=== PATIENT | male | born 1965 | race Caucasian/White ===

== ENCOUNTER 2018-11-28 08:34 | Inpatient (IN) | payer OTHER ==
[~2018-11-28] VITALS: Ht 180.3 cm; Wt 236.8 kg
[~2018-11-28 08:34] MED LIST: ATOR40TA59 PO; BUSP15TA PO; CLIN300C8 PO; FENO160T PO; FURO80TA72 PO; HYDR-3164 PO; INSU100I18 SQ; LEVO100T5 PO; LISI10TA2 PO; LURA80TA PO; METF500T25 PO; METO-239 PO; OMEG1CAP2 PO; OMEP20CA10 PO; OXCA600T9 PO; POTA10TA12 PO; PRAZ1CAP2 PO; RANI150T2 PO; TRAZ-86 PO; ZOLP10TA4 PO
[2018-11-28 09:54] LABS: BASO # 0.1 x10^3/uL (0.0-0.2); BASO % 1 % (0-3); EOS # 0.8 x10^3/uL (0.0-0.7); EOS % 12 % (0-3); HEMATOCRIT 36.7 % (39.0-53.0); LYMPH # 1.3 x10^3/uL (1.0-4.8); LYMPH % 20 % (24-48); MEAN CORPUSCULAR HEMOGLOBIN 29 pg (25-35); MEAN CORPUSCULAR HGB CONC 33 g/dL (31-37); MEAN CORPUSCULAR VOLUME 90 fL (79-100); MONO # 0.6 x10^3/uL (0.0-1.1); MONO % 9 % (0-9); NEUT % 59 % (31-73); PLATELET COUNT 242 x10^3/uL (140-400); RED BLOOD COUNT 4.09 x10^6/uL (4.30-5.70); RED CELL DISTRIBUTION WIDTH 19.5 % (11.5-14.5); WHITE BLOOD COUNT 6.8 x10^3/uL (4.0-11.0)
[2018-11-28 10:03] LABS: PROTHROMBIN TIME PATIENT 12.9 SEC (11.7-14.0)
[2018-11-28 10:13] LABS: CALCIUM 8.2 mg/dL (8.5-10.1); CREATININE 0.9 mg/dL (0.7-1.3); POTASSIUM 4.1 mmol/L (3.5-5.1)
[2018-11-28 10:18] LABS: ALBUMIN 2.8 g/dL (3.4-5.0); ALBUMIN/GLOBULIN RATIO 0.7 (1.0-1.7); C-REACTIVE PROTEIN 33.8 mg/L (0-3.3); TOTAL BILIRUBIN 0.2 mg/dL (0.2-1.0); TOTAL PROTEIN 6.7 g/dL (6.4-8.2)
[2018-11-28 10:29] LABS: BILIRUBIN,URINE NEGATIVE (NEG); CLARITY,URINE CLEAR; COLOR,URINE YELLOW; NITRITE,URINE NEGATIVE (NEG); PH,URINE 5.5; PROTEIN,URINE NEGATIVE (NEG-TRACE); UROBILINOGEN,URINE 0.2 mg/dL (0.2 mg/dL)
[2018-11-28 10:33] LABS: SQUAMOUS EPITHELIAL CELL,UR MOD /LPF
[2018-11-28 10:35] LABS: BACTERIA,URINE FEW /HPF (0-FEW); RBC,URINE OCC /HPF (0-2)
[2018-11-28] MEDS ORDERED: ACETAMINOPHEN 325 MG TABLET. PO PRN (10:45)
[2018-11-28] MEDS ORDERED: VANCOMYCIN 2 GM in IV NORMAL SALINE 500ML BAG 500 ML IV ONE (11:00)
--- NOTE | 2018-11-28 11:20 | PDOC1 ---
History and Physical Date of Admission Date of Admission DATE: 11/28/18 TIME: 11:18 Identification/Chief Complaint Chief Complaint SEEN IN ER WITH WORSENING CELLULITIS PANNUS, RECURRENT, now tender, erythematous Past Medical History Past Medical History Past Medical History Past Medical History: Asthma, COPD, Diabetes-Type I, Hypertension, Hypothyroid , Other Additional Past Medical Histor: Cardiomyopathy, psychiatric issues Past Surgical History: Other Additional Past Surgical Histo: HERNIA REPAIR Alcohol Use: None Drug Use: None family hx obesity, HTN PAST MEDICAL HISTORY: ventral hernia repair in November 2013. He is known to have diabetes mellitus, morbid obesity, chronic cardiomyopathy, hypertension, COPD, asthma, bipolar disorder, and gastroesophageal reflux disease. PAST SURGICAL HISTORY: Ventral hernia repair cardiac cath in June 2013, possible glaucoma and cataracts. He had ear tubes placed when he was young in October 2013 and it could have been earlier. The patient had the cardiac catheterization done by Dr. Guzman and that was negative. ALLERGIES: None known any. MEDICATIONS: I have reviewed the medications. SOCIAL HISTORY: The patient has been a heavy smoker in the past and has smoked over 30 pack years. He has also used cocaine in the past, but there is no history of alcoholism. FAMILY HISTORY: There is a history of cerebrovascular disease in the family. There is also history of diabetes and hypertension in the family. Cardiovascular: HTN, Hyperlipidemia GI: GERD Endocrine: Diabetes Family History Family History: Diabetes Social History Smoke: No ALCOHOL: none Drugs: None Current Medications Current Medications Current Medications Acetaminophen (Tylenol) 650 mg PRN Q4HRS PRN PO FEVER Last administered on 11/28at 10:46; Start 11/28/18 at 10:45; Stop 11/29/18 at 10:44 Vancomycin HCl 2 gm/Sodium Chloride 500 ml @ 250 mls/hr 1X ONCE IV ; Start 09/05 at 11:00; Stop 11/28/18 at 12:59 Active Scripts Active Clindamycin Hcl 300 Mg Capsule 1 Cap PO TID Admire 5-325 Tablet (Acetaminophen/Hydrocodone Bitart) 1 Each Tablet 1 Tab PO PRN Q6HRS PRN Reported Levemir Flexpen (Insulin Detemir) 100 Unit/1 Ml Insuln.pen 10 Unit SQ HS Fenofibrate 160 Mg Tablet 160 Mg PO DAILY Atorvastatin Calcium 40 Mg Tablet 40 Mg PO HS Omeprazole 20 Mg Capsule.dr 20 Mg PO HS Prazosin Hcl 1 Mg Capsule 1 Mg PO HS Trazodone Hcl 100 Mg Tablet 100 Mg PO HS Zolpidem Tartrate 10 Mg Tablet 10 Mg PO HS Oxcarbazepine 600 Mg Tablet 1,200 Mg PO DAILY Latuda (Lurasidone Hcl) 80 Mg Tablet 160 Mg PO DAILY Buspirone Hcl 15 Mg Tablet 15 Mg PO TID Potassium Chloride 10 Meq Capsule.er 10 Meq PO TID Ranitidine Hcl 150 Mg Tablet 150 Mg PO BID Metformin Hcl Er (Metformin Hcl) 500 Mg Tab.er.24 500 Mg PO BID Lovaza ([place]-3 Acid Ethyl Esters) 1 Gm Capsule 2 Gm PO BID Lisinopril 10 Mg Tablet 10 Mg PO DAILY Levothyroxine Sodium 100 Mcg Tablet 100 Mcg PO DAILY Lasix (Furosemide) 80 Mg Tablet 80 Mg PO DAILY Metoprolol Succinate ( Xl ) (Metoprolol Succinate) 25 Mg Tab.er.24h 25 Mg PO DAILY Allergies Allergies: Coded Allergies: sulfamethoxazole (Verified Allergy, Intermediate, RASH, 06/30/16) trimethoprim (Verified Allergy, Intermediate, RASH, 06/30/16) ROS Review of System 14 pt ros otherwise neg General: YES: Fatigue PSYCHOLOGICAL ROS: YES: Anxiety, Mood Swings Eyes: No Blurry vision, No Decreased vision, No Double vision, No Dry eyes, No Excessive tearing, No Eye Pain, No Itchy Eyes, No Loss of vision, No Photophobia , No Scotomata, No Uses contacts, No Uses glasses, No Other ALLERGY AND IMMUNOLOGY: No: Hives, Insect Bite Sensitivity, Itchy/Watery Eyes, Nasal Congestion, Post Nasal Drip, Seasonal Allergies, Other ENDOCRINE: No: Breast Changes, Galactorrhea, Hair Pattern Changes, Hot Flashes , Malaise/lethargy, Mood Swings, Palpitations, Polydipsia/polyuria, Skin Changes , Temperature Intolerance, Unexpected Weight Changes, Other Respiratory: No: Cough, Hemoptysis, Orthopnea, Pleuritic Pain, Shortness of breath, SOB with excertion, Sputum Changes, Stridor, Tachypnea, Wheezing, Other Cardiovascular: No Chest Pain, No Palpitations, No Orthopnea, No Paroxysmal Noc. Dyspnea, No Edema, No Lt Headedness, No Other Genitourinary: YES Retention Musculoskeletal: Yes Gait Disturbance Neurological: Yes Gait Disturbance; No Behavorial Changes, No Bowel/Bladder ControlChng, No Confusion, No Dizziness, No Headaches, No Impaired Coord/balance, No Memory Loss, No Numbness/ Tingling, No Seizures, No Speech Problems, No Tremors, No Visual Changes, No Weakness, No Other Skin: Yes Rash Physical Exam General: Alert, Oriented X3, Cooperative, mild distress HEENT: Atraumatic, PERRLA Lungs: Clear to auscultation Heart: RRR, no gallops Breasts: Not examined Abdomen: Other (very obese with erythema of large pannus, tender lower aspect) PELVIC: Examination not indicated Extremities: No cyanosis Neuro: Normal speech, Cranial nerves 3-12 NL Psych/Mental Status: Mental status NL, Mood NL Vitals Vitals Vital Signs Date Time Temp Pulse Resp B/P (MAP) Pulse Ox O2 Delivery O2 Flow Rate FiO2 11/28/18 09:15 97.7 96 20 109/60 (76) 96 Room Air 97.7 Labs Labs Laboratory Tests Test 11/28/18 09:48 11/28/18 10:15 White Blood Count 6.8 x10^3/uL (4.0-11.0) Red Blood Count 4.09 x10^6/uL (4.30-5.70) Hemoglobin 12.0 g/dL (13.0-17.5) Hematocrit 36.7 % (39.0-53.0) Mean Corpuscular Volume 90 fL (79-100) Mean Corpuscular Hemoglobin 29 pg (25-35) Mean Corpuscular Hemoglobin Concent 33 g/dL (31-37) Red Cell Distribution Width 19.5 % (11.5-14.5) Platelet Count 242 x10^3/uL (140-400) Neutrophils (%) (Auto) 59 % (31-73) Lymphocytes (%) (Auto) 20 % (24-48) Monocytes (%) (Auto) 9 % (0-9) Eosinophils (%) (Auto) 12 % (0-3) Basophils (%) (Auto) 1 % (0-3) Neutrophils # (Auto) 4.0 x10^3uL (1.8-7.7) Lymphocytes # (Auto) 1.3 x10^3/uL (1.0-4.8) Monocytes # (Auto) 0.6 x10^3/uL (0.0-1.1) Eosinophils # (Auto) 0.8 x10^3/uL (0.0-0.7) Basophils # (Auto) 0.1 x10^3/uL (0.0-0.2) Prothrombin Time 12.9 SEC (11.7-14.0) Prothromb Time International Ratio 1.0 (0.8-1.1) Sodium Level 138 mmol/L (136-145) Potassium Level 4.1 mmol/L (3.5-5.1) Chloride Level 101 mmol/L (98-107) Carbon Dioxide Level 26 mmol/L (21-32) Anion Gap 11 (6-14) Blood Urea Nitrogen 9 mg/dL (8-26) Creatinine 0.9 mg/dL (0.7-1.3) Estimated GFR (Cockcroft-Gault) 89.0 BUN/Creatinine Ratio 10 (6-20) Glucose Level 234 mg/dL (70-99) Calcium Level 8.2 mg/dL (8.5-10.1) Total Bilirubin 0.2 mg/dL (0.2-1.0) Aspartate Amino Transf (AST/SGOT) 21 U/L (15-37) Alanine Aminotransferase (ALT/SGPT) 31 U/L (16-63) Alkaline Phosphatase 135 U/L (46-116) C-Reactive Protein, Quantitative 33.8 mg/L (0-3.3) Total Protein 6.7 g/dL (6.4-8.2) Albumin 2.8 g/dL (3.4-5.0) Albumin/Globulin Ratio 0.7 (1.0-1.7) Urine Collection Type Unknown Urine Color Yellow Urine Clarity Clear Urine pH 5.5 Urine Specific [place] >=1.030 Urine Protein Negative mg/dL (NEG-TRACE) Urine Glucose (UA) >=1000 mg/dL (NEG) Urine Ketones (Stick) Negative mg/dL (NEG) Urine Blood Negative (NEG) Urine Nitrite Negative (NEG) Urine Bilirubin Negative (NEG) Urine Urobilinogen Dipstick 0.2 mg/dL (0.2 mg/dL) Urine Leukocyte Esterase Negative (NEG) Urine RBC Occ /HPF (0-2) Urine WBC 5-10 /HPF (0-4) Urine Squamous Epithelial Cells Mod /LPF Urine Bacteria Few /HPF (0-FEW) Urine Mucus Slight /LPF Laboratory Tests Test 11/28/18 09:48 11/28/18 10:15 White Blood Count 6.8 x10^3/uL (4.0-11.0) Red Blood Count 4.09 x10^6/uL (4.30-5.70) Hemoglobin 12.0 g/dL (13.0-17.5) Hematocrit 36.7 % (39.0-53.0) Mean Corpuscular Volume 90 fL (79-100) Mean Corpuscular Hemoglobin 29 pg (25-35) Mean Corpuscular Hemoglobin Concent 33 g/dL (31-37) Red Cell Distribution Width 19.5 % (11.5-14.5) Platelet Count 242 x10^3/uL (140-400) Neutrophils (%) (Auto) 59 % (31-73) Lymphocytes (%) (Auto) 20 % (24-48) Monocytes (%) (Auto) 9 % (0-9) Eosinophils (%) (Auto) 12 % (0-3) Basophils (%) (Auto) 1 % (0-3) Neutrophils # (Auto) 4.0 x10^3uL (1.8-7.7) Lymphocytes # (Auto) 1.3 x10^3/uL (1.0-4.8) Monocytes # (Auto) 0.6 x10^3/uL (0.0-1.1) Eosinophils # (Auto) 0.8 x10^3/uL (0.0-0.7) Basophils # (Auto) 0.1 x10^3/uL (0.0-0.2) Prothrombin Time 12.9 SEC (11.7-14.0) Prothromb Time International Ratio 1.0 (0.8-1.1) Sodium Level 138 mmol/L (136-145) Potassium Level 4.1 mmol/L (3.5-5.1) Chloride Level 101 mmol/L (98-107) Carbon Dioxide Level 26 mmol/L (21-32) Anion Gap 11 (6-14) Blood Urea Nitrogen 9 mg/dL (8-26) Creatinine 0.9 mg/dL (0.7-1.3) Estimated GFR (Cockcroft-Gault) 89.0 BUN/Creatinine Ratio 10 (6-20) Glucose Level 234 mg/dL (70-99) Calcium Level 8.2 mg/dL (8.5-10.1) Total Bilirubin 0.2 mg/dL (0.2-1.0) Aspartate Amino Transf (AST/SGOT) 21 U/L (15-37) Alanine Aminotransferase (ALT/SGPT) 31 U/L (16-63) Alkaline Phosphatase 135 U/L (46-116) C-Reactive Protein, Quantitative 33.8 mg/L (0-3.3) Total Protein 6.7 g/dL (6.4-8.2) Albumin 2.8 g/dL (3.4-5.0) Albumin/Globulin Ratio 0.7 (1.0-1.7) Urine Collection Type Unknown Urine Color Yellow Urine Clarity Clear Urine pH 5.5 Urine Specific [place] >=1.030 Urine Protein Negative mg/dL (NEG-TRACE) Urine Glucose (UA) >=1000 mg/dL (NEG) Urine Ketones (Stick) Negative mg/dL (NEG) Urine Blood Negative (NEG) Urine Nitrite Negative (NEG) Urine Bilirubin Negative (NEG) Urine Urobilinogen Dipstick 0.2 mg/dL (0.2 mg/dL) Urine Leukocyte Esterase Negative (NEG) Urine RBC Occ /HPF (0-2) Urine WBC 5-10 /HPF (0-4) Urine Squamous Epithelial Cells Mod /LPF Urine Bacteria Few /HPF (0-FEW) Urine Mucus Slight /LPF VTE Prophylaxis Ordered VTE Prophylaxis Devices: Yes VTE Pharmacological Prophylaxi: Yes Assessment/Plan Assessment/Plan impression 1. acute complicated cellulitis of abdominal wall pannus 2. diabetes 3. extreme morbid obesity 4. GERD 5. HYPERLIPIDEMIA 6. Hypertension plan 1. iv vanc 2. ID consult 3. wound care nurse consult 4. glucose control 5. ct abd 6. dvt prophylaxis 7. cont home JUANJOSE Orozco MD Nov 28, 2018 11:20
--- NOTE | 2018-11-28 13:15 | NUR ---
Pt was admitted to room 578 from ED at 1315 via bed by transportation. Vanco infusing. Pt c/o of pain "all the way from the bottom of my chest to my feet." Skin is warm, taught, and very painful to the touch for patient. Pillow cases were applied under the pannus to keep dry. Pt also has what the patient states as "grease driscoll." He states that he cooks for a lot of his family and doesn't wear a shirt while cooking. No wounds on back of patient. Pictures were taken of all wounds. VSS. All belongings were left with patient at the time admission. Will continue to monitor.
[2018-11-28 14:01] VITALS: BP 116/70
[2018-11-28 15:11] VITALS: BP 110/69
[2018-11-28] MEDS: VANCOMYCIN PER PHARMACY MC PRN (16:52)
--- NOTE | 2018-11-28 16:53 | NUR ---
Pharmacy Vancomycin Dosing Note S:Consulted to monitor and dose vancomycin started 11/28/18. O:MCKAYLA RAMAN is a 53 year old M with Cellulitis . Height: 5 feet, 11 inches Weight: 226.558098 kg [place] Body Weight: 75.30 Adjusted Body Weight: 135.58 Dosing Weight: Actual Other Antibiotics: LABS: Last BUN: 9 Last Creatinine: 0.9 Creatinine Clearance: >100 mL/min Last WBC: 6.8 Last Procalcitonin: Tmax (past 24 hours): 98.1 Microbiology: I/O: Drug Levels: Last level: on at Last dose given 11/28/18 at 1122 Vancomycin Dosing: Loading Dose: 2000 mg x1 Dosing Weight: Actual Target Trough: 10-20 A: Based on: Body weight and renal function P: 1. After loading dose, start Vancomycin 1500 mg IV q8h 2. Follow up Trough level on 11/29/18 at 1100 3. Pharmacy will continue to monitor, follow and adjust therapy as needed. MCKAY DALY [facility]MERLY [facility] [place], 11/28/18 [id number]
[2018-11-28] MEDS: busPIRone 5 MG TABLET. PO SCH ×2 (16:59→20:13)
[2018-11-28] MEDS: POTASSIUM CHLORIDE 10 MEQ TABLET.ER. PO SCH (16:59)
[2018-11-28] MEDS: HEPARIN for SUB-Q USE 5,000 UNIT/ML VIAL. SQ SCH ×2 (17:02→21:05)
--- NOTE | 2018-11-28 17:05 | RAD ---
CT of the abdomen and pelvis without contrast, 11/28/2018: HISTORY: Cellulitis Noncontrast scans were obtained. Due to the patient's large size his abdomen could not be completely included the [id number], resulting in extensive streak artifacts. The liver is of slightly greater than lower density compatible with fatty change. No hepatic mass is evident. The gallbladder is collapsed. No dense gallstones are seen. The pancreas is unremarkable. The spleen is of normal size. There is a small nonobstructing intrarenal calculus on the right measure approximately 5 mm. The kidneys show no evidence of obstruction. The abdominal aorta is unremarkable. No abdominal or pelvic adenopathy is seen. A right lower quadrant calcifications probably a phlebolith. The bowel loops are not dilated. A portion of the appendix is visualized and it shows no abnormality. No free fluid or free air is evident in the abdomen or pelvis. There is considerable streaky increased density in the subcutaneous soft tissues at the level of the lower abdominal pannus. There is overlying skin thickening. The findings suggest nonspecific inflammation. The low lying pannus is not completely included on these scans. No discrete abscess is identified. IMPRESSION: 1. Hepatic steatosis. 2. Moderate nonspecific subcutaneous inflammation in the lower abdominal pannus. Cellulitis is a possibility. 3. Small nonobstructing right intrarenal calculus. 4. No acute intra-abdominal abnormality is identified on this limited exam. PQRS Compliance Statement: One or more of the following individualized dose reduction techniques were utilized for this examination: 1. Automated exposure control 2. Adjustment of the mA and/or kV according to patient size 3. Use of iterative reconstruction technique Electronically signed by: Gilmar Barahona MD (11/28/2018 5:00 PM) [facility]
--- NOTE | 2018-11-28 17:22 | PDOC ---
Infectious Disease Note Vital Signs: Vital Signs Vital Signs Date Time Temp Pulse Resp B/P (MAP) Pulse Ox O2 Delivery O2 Flow Rate FiO2 11/28/18 15:11 98.1 88 20 110/69 (83) 93 Room Air 98.1 Medications: Inpatient Meds: Current Medications Medications (Trade) Dose Ordered Sig/Maryellen Start Time Stop Time Status Last Admin Dose Admin Acetaminophen (Tylenol) 650 mg PRN Q4HRS PRN 11/28/18 10:45 11/29/18 10:44 11/28/18 10:46 650 MG Acetaminophen/ Hydrocodone Bitart (Lortab 5/325) 1 tab PRN Q6HRS PRN 11/28/18 16:15 Atorvastatin Calcium (Lipitor) 40 mg HS 11/28/18 21:00 Buspirone HCl (Buspar) 15 mg TID 11/28/18 16:15 11/28/18 16:59 15 MG Famotidine (Pepcid) 20 mg BID 11/28/18 21:00 Fenofibrate (Lofibra) 134 mg DAILY 11/29/18 09:00 Fish Oil (Fish Oil) 2,000 mg BID 11/28/18 21:00 Furosemide (Lasix) 80 mg DAILY 11/29/18 09:00 Heparin Sodium (Porcine) (Heparin Sodium) 5,000 unit Q8HRS 11/28/18 16:15 11/28/18 17:02 5,000 UNIT Insulin Glargine (Lantus) 10 units QHS 11/28/18 21:00 Lactobacillus Rhamnosus (Culturelle) 1 cap BID 11/28/18 21:00 Levothyroxine Sodium (Synthroid) 100 mcg DAILY06 11/29/18 06:00 Lisinopril (Prinivil) 10 mg DAILY 11/29/18 09:00 Metformin HCl (Glucophage Xr) 500 mg BID 11/28/18 21:00 Metoprolol Succinate (Toprol Xl) 25 mg DAILY 11/29/18 09:00 Non-Formulary Medication (Lurasidone Hcl (Latuda)) 160 mg DAILY 11/29/18 09:00 UNV Oxcarbazepine (Trileptal) 1,200 mg DAILY 11/29/18 09:00 Pantoprazole Sodium (Protonix) 40 mg QHS 11/29/18 07:30 Potassium Chloride (Klor-Con) 10 meq TIDWMEALS 11/28/18 17:00 11/28/18 16:59 10 MEQ Prazosin HCl (Minipress) 1 mg QHS 11/28/18 21:00 Trazodone HCl (Desyrel) 100 mg HS 11/28/18 21:00 Vancomycin HCl (Vanco Per Pharmacy) 1 each PRN DAILY PRN 11/28/18 16:15 11/28/18 16:52 1 EACH Vancomycin HCl (Vancomycin Trough Level) 1 each 1X ONCE 11/29/18 11:00 11/29/18 11:01 Vancomycin HCl 1.5 gm/Sodium Chloride 500 ml @ 250 mls/hr Q8H 11/28/18 19:30 Vancomycin HCl 2 gm/Sodium Chloride 500 ml @ 250 mls/hr 1X ONCE 11/28/18 11:00 11/28/18 12:59 DC 11/28/18 11:22 250 MLS/HR Labs: Lab Laboratory Tests Test 11/28/18 09:48 11/28/18 10:15 11/28/18 13:31 White Blood Count 6.8 x10^3/uL (4.0-11.0) Red Blood Count 4.09 x10^6/uL (4.30-5.70) Hemoglobin 12.0 g/dL (13.0-17.5) Hematocrit 36.7 % (39.0-53.0) Mean Corpuscular Volume 90 fL (79-100) Mean Corpuscular Hemoglobin 29 pg (25-35) Mean Corpuscular Hemoglobin Concent 33 g/dL (31-37) Red Cell Distribution Width 19.5 % (11.5-14.5) Platelet Count 242 x10^3/uL (140-400) Neutrophils (%) (Auto) 59 % (31-73) Lymphocytes (%) (Auto) 20 % (24-48) Monocytes (%) (Auto) 9 % (0-9) Eosinophils (%) (Auto) 12 % (0-3) Basophils (%) (Auto) 1 % (0-3) Neutrophils # (Auto) 4.0 x10^3uL (1.8-7.7) Lymphocytes # (Auto) 1.3 x10^3/uL (1.0-4.8) Monocytes # (Auto) 0.6 x10^3/uL (0.0-1.1) Eosinophils # (Auto) 0.8 x10^3/uL (0.0-0.7) Basophils # (Auto) 0.1 x10^3/uL (0.0-0.2) Prothrombin Time 12.9 SEC (11.7-14.0) Prothromb Time International Ratio 1.0 (0.8-1.1) Sodium Level 138 mmol/L (136-145) Potassium Level 4.1 mmol/L (3.5-5.1) Chloride Level 101 mmol/L (98-107) Carbon Dioxide Level 26 mmol/L (21-32) Anion Gap 11 (6-14) Blood Urea Nitrogen 9 mg/dL (8-26) Creatinine 0.9 mg/dL (0.7-1.3) Estimated GFR (Cockcroft-Gault) 89.0 BUN/Creatinine Ratio 10 (6-20) Glucose Level 234 mg/dL (70-99) Calcium Level 8.2 mg/dL (8.5-10.1) Total Bilirubin 0.2 mg/dL (0.2-1.0) Aspartate Amino Transf (AST/SGOT) 21 U/L (15-37) Alanine Aminotransferase (ALT/SGPT) 31 U/L (16-63) Alkaline Phosphatase 135 U/L (46-116) C-Reactive Protein, Quantitative 33.8 mg/L (0-3.3) Total Protein 6.7 g/dL (6.4-8.2) Albumin 2.8 g/dL (3.4-5.0) Albumin/Globulin Ratio 0.7 (1.0-1.7) Urine Collection Type Unknown Urine Color Yellow Urine Clarity Clear Urine pH 5.5 Urine Specific [place] >=1.030 Urine Protein Negative mg/dL (NEG-TRACE) Urine Glucose (UA) >=1000 mg/dL (NEG) Urine Ketones (Stick) Negative mg/dL (NEG) Urine Blood Negative (NEG) Urine Nitrite Negative (NEG) Urine Bilirubin Negative (NEG) Urine Urobilinogen Dipstick 0.2 mg/dL (0.2 mg/dL) Urine Leukocyte Esterase Negative (NEG) Urine RBC Occ /HPF (0-2) Urine WBC 5-10 /HPF (0-4) Urine Squamous Epithelial Cells Mod /LPF Urine Bacteria Few /HPF (0-FEW) Urine Mucus Slight /LPF Glucose (Fingerstick) 158 mg/dL (70-99) Objective: Assessment: Cellulitis of Pannus abdominal wall DM1 poorly controlled Morbid obesity Plan: Plan of Care Cont IV Vanc Ceftriaxone MRSA screen monitor renal functions closely wound care optimal dm control Thank you [id number] VONDA OSPINA MD Nov 28, 2018 17:22
[2018-11-28] MEDS: cefTRIAXone IV Push 2 GM VIAL. IVP SCH (17:59)
[2018-11-28] MEDS: MICAFUNGIN 100 MG in IV DEXTROSE 5% 100ML 100 ML IV SCH (18:14)
--- NOTE | 2018-11-28 18:24 | PHYS DOC ---
Past Medical History Past Medical History: Asthma, COPD, Diabetes-Type I, Hypertension, Hypothyroid , Other Additional Past Medical Histor: Cardiomyopathy, psychiatric issues Past Surgical History: Other Additional Past Surgical Histo: HERNIA REPAIR Alcohol Use: None Drug Use: None Adult General Chief Complaint Chief Complaint: MULTIPLE COMPLAINTS [facility] HPI Patient is a 53-year-old male who presents with complaint of redness, swelling and pain in area of his pannus. Patient states that pain and swelling have been worsening over the last month. Patient states that the pain is gotten to the point where he is just not able to tolerate more. He denies any fever. He states the pain is worsened with movement and palpation of the area. Patient is worried that he has a yeast infection. Review of Systems Review of Systems Constitutional: Denies fever or chills [] Respiratory: Denies cough or shortness of breath [] Cardiovascular: No additional information not addressed in HPI [] GI: Denies abdominal pain, nausea, vomiting or diarrhea [] Integument: Positive redness and warmth, diffuse skin of abdominal wall[] Neurologic: Denies headache, focal weakness or sensory changes [] All other systems were reviewed and found to be within normal limits, except as documented in this note. Allergies Allergies Allergies Coded Allergies Type Severity Reaction Last Updated Verified sulfamethoxazole Allergy Intermediate RASH 06/30/16 Yes trimethoprim Allergy Intermediate RASH 06/30/16 Yes Physical Exam Physical Exam Constitutional: Well developed, well nourished, no acute distress, non-toxic appearance. [] HENT: Normocephalic, atraumatic, bilateral external ears normal, oropharynx moist, no oral exudates, nose normal. [] Eyes: PERRLA, EOMI, conjunctiva normal, no discharge. [] Neck: Normal range of motion, no tenderness, supple, no stridor. [] Cardiovascular: Mildly tachycardic rate with regular rhythm[] Lungs & Thorax: Bilateral breath sounds clear to auscultation [] Abdomen: Bowel sounds normal, contour is morbidly obese. [] Skin: Warm, dry. Skin surrounding pannus tissue demonstrates significant heat, redness and induration consistent with cellulitis. [] Extremities: No tenderness, no cyanosis, no clubbing, ROM intact, with lower extremity edema. [] Neurologic: Alert and oriented X 3, no focal deficits noted. [] Current Patient Data Vital Signs Vital Signs Date Time Temp Pulse Resp B/P (MAP) Pulse Ox O2 Delivery O2 Flow Rate FiO2 11/28/18 09:15 97.7 96 20 109/60 (76) 96 Room Air 97.7 Lab Values Laboratory Tests Test 11/28/18 09:48 11/28/18 10:15 White Blood Count 6.8 x10^3/uL (4.0-11.0) Red Blood Count 4.09 x10^6/uL (4.30-5.70) L Hemoglobin 12.0 g/dL (13.0-17.5) L Hematocrit 36.7 % (39.0-53.0) L Mean Corpuscular Volume 90 fL (79-100) Mean Corpuscular Hemoglobin 29 pg (25-35) Mean Corpuscular Hemoglobin Concent 33 g/dL (31-37) Red Cell Distribution Width 19.5 % (11.5-14.5) H Platelet Count 242 x10^3/uL (140-400) Neutrophils (%) (Auto) 59 % (31-73) Lymphocytes (%) (Auto) 20 % (24-48) L Monocytes (%) (Auto) 9 % (0-9) Eosinophils (%) (Auto) 12 % (0-3) H Basophils (%) (Auto) 1 % (0-3) Neutrophils # (Auto) 4.0 x10^3uL (1.8-7.7) Lymphocytes # (Auto) 1.3 x10^3/uL (1.0-4.8) Monocytes # (Auto) 0.6 x10^3/uL (0.0-1.1) Eosinophils # (Auto) 0.8 x10^3/uL (0.0-0.7) H Basophils # (Auto) 0.1 x10^3/uL (0.0-0.2) Prothrombin Time 12.9 SEC (11.7-14.0) Prothrombin Time INR 1.0 (0.8-1.1) Sodium Level 138 mmol/L (136-145) Potassium Level 4.1 mmol/L (3.5-5.1) Chloride Level 101 mmol/L (98-107) Carbon Dioxide Level 26 mmol/L (21-32) Anion Gap 11 (6-14) Blood Urea Nitrogen 9 mg/dL (8-26) Creatinine 0.9 mg/dL (0.7-1.3) Estimated GFR (Cockcroft-Gault) 89.0 BUN/Creatinine Ratio 10 (6-20) Glucose Level 234 mg/dL (70-99) H Calcium Level 8.2 mg/dL (8.5-10.1) L Total Bilirubin 0.2 mg/dL (0.2-1.0) Aspartate Amino Transferase (AST) 21 U/L (15-37) Alanine Aminotransferase (ALT) 31 U/L (16-63) Alkaline Phosphatase 135 U/L (46-116) H C-Reactive Protein, Quantitative 33.8 mg/L (0-3.3) H Total Protein 6.7 g/dL (6.4-8.2) Albumin 2.8 g/dL (3.4-5.0) L Albumin/Globulin Ratio 0.7 (1.0-1.7) L Urine Collection Type Unknown Urine Color Yellow Urine Clarity Clear Urine pH 5.5 Urine Specific [place] >=1.030 Urine Protein Negative mg/dL (NEG-TRACE) Urine Glucose (UA) >=1000 mg/dL (NEG) Urine Ketones (Stick) Negative mg/dL (NEG) Urine Blood Negative (NEG) Urine Nitrite Negative (NEG) Urine Bilirubin Negative (NEG) Urine Urobilinogen Dipstick 0.2 mg/dL (0.2 mg/dL) Urine Leukocyte Esterase Negative (NEG) Urine RBC Occ /HPF (0-2) Urine WBC 5-10 /HPF (0-4) Urine Squamous Epithelial Cells Mod /LPF Urine Bacteria Few /HPF (0-FEW) Urine Mucus Slight /LPF Laboratory Tests 11/28/18 09:48 Laboratory Tests 11/28/18 09:48 EKG EKG [] Radiology/Procedures Radiology/Procedures [] Course & Med Decision Making Course & Med Decision Making Pertinent Labs and Imaging studies reviewed. (See chart for details) [] Dragon Disclaimer Dragon Disclaimer This electronic medical record was generated, in whole or in part, using a voice recognition dictation system. Departure Departure Impression: Primary Impression: Cellulitis Additional Impression: Morbid obesity Disposition: ADMITTED INPATIENT Admitting Physician: Eldon Vitale Condition: IMPROVED Referrals: NO PCP (PCP) Problem Qualifiers Primary Impression: Cellulitis Site of cellulitis: unspecified site Qualified Codes: L03.90 - Cellulitis, unspecified TERA MATTHEWS Jr. DO Nov 28, 2018 18:24
[2018-11-28 19:00] VITALS: BP 141/76
[2018-11-28] MEDS: VANCOMYCIN 1.5 GM in IV NORMAL SALINE 500ML BAG 500 ML IV SCH (19:38)
[2018-11-28] MEDS: metFORMIN XR 500 MG TAB.ER.24H PO SCH (20:11)
[2018-11-28] MEDS: OMEGA-3 FATTY ACIDS/FISH OIL 1,000 MG CAPSULE. PO SCH (20:11)
[2018-11-28] MEDS: LACTOBACILLUS RHAMNOSUS GG 1 CAPSULE. PO SCH (20:11)
[2018-11-28] MEDS: traZODone 100 MG TABLET. PO SCH (20:12)
[2018-11-28] MEDS: ATORVASTATIN CALCIUM 40 MG TABLET. PO SCH (20:12)
[2018-11-28] MEDS: PRAZOSIN 1 MG CAPSULE. PO SCH (20:13)
[2018-11-28] MEDS: FAMOTIDINE 20 MG TABLET. PO SCH (20:13)
[2018-11-28] MEDS: INSULIN GLARGINE 300 UNITS/3 ML INSULN.PEN. SQ SCH (20:16)
[2018-11-28 23:00] VITALS: BP 155/85
--- NOTE | 2018-11-29 01:29 | CONS ---
DATE OF CONSULTATION: 11/28/2018 REFERRING PHYSICIAN: Dr. Humphreys. REASON FOR CONSULTATION: Antibiotic management. HISTORY OF PRESENT ILLNESS: A 53-year-old male with history of morbid obesity, history of pannus cellulitis, recurrent asthma, COPD, diabetes mellitus type 1, hypertension, hypothyroidism, cardiomyopathy, psychiatric issues, hernia repair, chronic GERD, bipolar disorder, asthma, hypertension, presented to the ER with worsening cellulitis of his pannus over the last week with tenderness and pain. The patient usually goes to [facility] and receives IV antibiotics, sometimes oral antibiotics. He usually had Keflex on hand with any flareups, but his doctor at [facility], Dr. Mcfarland, recently fired him as he was not able to keep his appointments in July and August. The patient has had flare up off and on since then. He was found to be afebrile, vital signs were stable. White count was normal. He has been started on empiric IV vancomycin and Infectious Disease consult has been requested for antibiotic management. UA showed 5-10 wbc's, leukocyte esterase negative, greater than 1000 urine glucose, patient has uncontrolled glucose. The patient also had eosinophilia on differential. Abdominal and pelvic CT showed hepatic steatosis, moderate nonspecific subcutaneous inflammation in the lower abdomen, pannus cellulitis is a possibility, small nonobstructing right intrarenal calculus. No acute intraabdominal abnormality. The patient has eschar over the anterior abdominal wall from driscoll that he sustained while cooking. No drainage. He also has chronic venous stasis with some eschars over both the lower extremities. He denies any nausea, vomiting, abdominal pain except for above. Did have hematuria off and on, none currently. He has urinary incontinence. Denies any other skin lesions. PAST MEDICAL HISTORY: Asthma, COPD, diabetes mellitus type 1, hypertension, hypothyroidism, cardiomyopathy, psychiatric illness, hernia repair in 11/2013, morbid obesity, chronic cardiomyopathy, bipolar disorder, GERD. History of DVT, left lower extremity with history of PE. PAST SURGICAL HISTORY: Ventral hernia repair, cardiac cath, glaucoma, cataracts, ear tubes placed in childhood. ALLERGIES: Sulfamethoxazole, rash. CURRENT MEDICATION: IV vancomycin. Other medications reviewed in medication list. The patient had been on clindamycin 1 cap p.o. t.i.d. prior to admission. SOCIAL HISTORY: Heavy smoker in the past, quit. Also, history of cocaine use in the past, none currently. No history of alcoholism. Lives alone, has one cat. FAMILY HISTORY: Per HPI. REVIEW OF SYSTEMS: Negative except for above in HPI. PHYSICAL EXAMINATION: VITAL SIGNS: Temperature 98.1, pulse 88, respiratory rate 20, blood pressure 110/69 and oxygen saturation 93% on room air. GENERAL: Alert, oriented, obese male lying in bed comfortably, in no acute distress. HEENT: Normocephalic, atraumatic, anicteric. No thrush. eschar lower chin( chronic ) LUNGS: Clear anteriorly. HEART: S1, S2 with no gallops or murmurs. ABDOMEN: Soft, morbidly obese, large pannus, erythematous, tender lower aspect, small lipomas present scattered over the anterior abdominal wall and scar well healed. No rebound, no guarding.No induration or fluctuance numerous eschars present ( improving, chronic per pt ) EXTREMITIES: Lower extremity, bilateral edema. Chronic venous stasis, chronic skin excoriation present. No purulence. No evidence of abscess in lower extremity. NEUROLOGIC: Alert and oriented x 3. Grossly nonfocal. PSYCHIATRIC: Cooperative, appropriate mood and affect. LABORATORY DATA: WBC 6.8, hemoglobin 12.0, hematocrit 36.7, platelets 242, lymphocytes 20, eosinophils 12. Sodium 138, potassium 4.1, chloride 101, bicarb 26, BUN 9, creatinine 0.9, glucose 234, calcium 8.2, total bilirubin 0.2, AST 21, ALT 31, alkaline phosphatase 135. C-reactive protein 33.8, albumin 2.8. UA shows greater than 1000 glucose, 5-10 wbc's, leukocyte esterase negative. INR 1.0. IMAGING: CT abdomen and pelvis as above. IMPRESSION: 1. Cellulitis of abdominal wall pannus with history of recurrence, last was sometime around July, appears that the patient failed ciprofloxacin as an outpatient. The patient has received Keflex off and on through [facility] primary care, but has been fired last 07/2018. 2. Diabetes mellitus type 1, poorly controlled. 3. Extreme morbid obesity. 4. Chronic venous stasis. 5. Multiple excoriations over lower extremity. 6. Eschar from driscoll superficial, not infected. 7. Gastroesophageal reflux disease. 8. Hyperlipidemia. 9. Hypertension. 10. History of psychiatric illness. 11. Numerous eschars on abdomen from previous driscoll eschar on face from old injury RECOMMENDATIONS: 1. Continue IV vancomycin. 2. Start patient on IV ceftriaxone and micafungin. 3. Follow up labs and cultures. 4. Optimal glucose control. 5. Wound care management. 6. DVT prophylaxis. 7. Continue supportive care. Thank you, Dr. Humphreys, for consulting Infectious Disease to participate in this patient's care. If you have any questions, do not hesitate to contact me. VONDA OSPINA MD DR: DELISA/holden JOB#: [id number] / [id number] ANABELA
[2018-11-29] MEDS: HYDROcodone/APAP 5/325MG 1 TAB TABLET PO PRN (02:20)
[2018-11-29 03:00] VITALS: BP 93/58
[2018-11-29] MEDS: VANCOMYCIN 1.5 GM in IV NORMAL SALINE 500ML BAG 500 ML IV SCH ×4 (03:20→19:25)
[2018-11-29] MEDS: LEVOTHYROXINE 100 MCG TABLET PO SCH (06:38)
[2018-11-29] MEDS: HEPARIN for SUB-Q USE 5,000 UNIT/ML VIAL. SQ SCH ×3 (06:40→22:42)
[2018-11-29 07:00] VITALS: BP 134/74
[2018-11-29 08:37] LABS: BASO # 0.1 x10^3/uL (0.0-0.2); BASO % 1 % (0-3); EOS # 0.9 x10^3/uL (0.0-0.7); EOS % 13 % (0-3); HEMATOCRIT 36.3 % (39.0-53.0); HEMOGLOBIN 11.8 g/dL (13.0-17.5); LYMPH # 1.4 x10^3/uL (1.0-4.8); LYMPH % 22 % (24-48); MEAN CORPUSCULAR HEMOGLOBIN 29 pg (25-35); MEAN CORPUSCULAR HGB CONC 33 g/dL (31-37); MEAN CORPUSCULAR VOLUME 90 fL (79-100); MONO # 0.6 x10^3/uL (0.0-1.1); MONO % 9 % (0-9); NEUT # 3.7 x10^3uL (1.8-7.7); NEUT % 56 % (31-73); PLATELET COUNT 237 x10^3/uL (140-400); RED BLOOD COUNT 4.03 x10^6/uL (4.30-5.70); RED CELL DISTRIBUTION WIDTH 19.4 % (11.5-14.5); WHITE BLOOD COUNT 6.6 x10^3/uL (4.0-11.0)
[2018-11-29] MEDS: LISINOPRIL 10 MG TABLET PO SCH (08:45)
[2018-11-29] MEDS: metFORMIN XR 500 MG TAB.ER.24H PO SCH ×2 (08:45→20:26)
[2018-11-29] MEDS: PANTOPRAZOLE 40 MG TABLET.DR. PO SCH ×2 (08:45→20:26)
[2018-11-29] MEDS: FAMOTIDINE 20 MG TABLET. PO SCH ×2 (08:45→20:26)
[2018-11-29] MEDS: POTASSIUM CHLORIDE 10 MEQ TABLET.ER. PO SCH ×3 (08:45→15:52)
[2018-11-29] MEDS: LACTOBACILLUS RHAMNOSUS GG 1 CAPSULE. PO SCH ×2 (08:45→20:26)
[2018-11-29] MEDS: FUROSEMIDE 80 MG TABLET. PO SCH (08:46)
[2018-11-29] MEDS: OMEGA-3 FATTY ACIDS/FISH OIL 1,000 MG CAPSULE. PO SCH ×2 (08:47→20:26)
[2018-11-29] MEDS: METOPROLOL SUCC 24HR ER 25 MG TAB.ER.24H. PO SCH (08:48)
[2018-11-29] MEDS: LURASIDONE 40 MG TABLET. PO SCH (08:48)
[2018-11-29] MEDS: busPIRone 5 MG TABLET. PO SCH ×3 (08:48→20:27)
[2018-11-29] MEDS: OXcarbazepine 300 MG TABLET PO SCH (08:50)
[2018-11-29] MEDS: FENOFIBRATE,MICRONIZED 134 MG CAPSULE PO SCH (09:11)
[2018-11-29 09:14] LABS: CALCIUM 8.5 mg/dL (8.5-10.1); CREATININE 0.7 mg/dL (0.7-1.3); GFR 118.9; POTASSIUM 4.1 mmol/L (3.5-5.1)
--- NOTE | 2018-11-29 09:16 | PDOC ---
Infectious Disease Note Subjective: Subjective Pt says he still has a lot of abdominal wall pain no f/c/n/v/d no sob or cough ROS: ROS Negative except for above. Vital Signs: Vital Signs Vital Signs Date Time Temp Pulse Resp B/P (MAP) Pulse Ox O2 Delivery O2 Flow Rate FiO2 11/29/18 08:48 103 134/74 11/29/18 07:00 98.4 20 92 98.4 11/29/18 03:28 Room Air Physical Exam: PHYSICAL EXAM GENERAL: Alert, oriented, obese male lying in bed comfortably, in no acute distress. HEENT: Normocephalic, atraumatic, anicteric. No thrush. LUNGS: Clear anteriorly. HEART: S1, S2 with no gallops or murmurs. ABDOMEN: Soft, morbidly obese, large pannus, erythematous, tender lower aspect, small numerous lipomas present scattered over the anterior abdominal wall , no induration or abscess, scar well healed. No rebound, no guarding. EXTREMITIES: Lower extremity, bilateral edema. Chronic venous stasis, chronic skin excoriation present. No purulence. No evidence of abscess in lower extremity. NEUROLOGIC: Alert and oriented x 3. Grossly nonfocal. PSYCHIATRIC: Cooperative, appropriate mood and affect. Medications: Inpatient Meds: Current Medications Medications (Trade) Dose Ordered Sig/[facility] Start Time Stop Time Status Last Admin Dose Admin Acetaminophen (Tylenol) 650 mg PRN Q4HRS PRN 11/28/18 10:45 11/29/18 10:44 11/28/18 10:46 650 MG Acetaminophen/ Hydrocodone Bitart (Lortab 5/325) 1 tab PRN Q6HRS PRN 11/28/18 16:15 11/29/18 02:20 1 TAB Atorvastatin Calcium (Lipitor) 40 mg HS 11/28/18 21:00 11/28/18 20:12 40 MG Buspirone HCl (Buspar) 15 mg TID 11/28/18 16:15 11/29/18 08:48 15 MG Ceftriaxone Sodium (Rocephin) 2 gm Q24H 11/28/18 17:30 11/28/18 17:59 2 GM Famotidine (Pepcid) 20 mg BID 11/28/18 21:00 11/29/18 08:45 20 MG Fenofibrate (Lofibra) 134 mg DAILY 2/12/19 09:00 Fish Oil (Fish Oil) 2,000 mg BID 11/28/18 21:00 11/29/18 08:47 2,000 MG Furosemide (Lasix) 80 mg DAILY 11/29/18 09:00 11/29/18 08:46 80 MG Heparin Sodium (Porcine) (Heparin Sodium) 5,000 unit Q8HRS 11/28/18 16:15 11/29/18 06:40 5,000 UNIT Insulin Glargine (Lantus) 10 units QHS 11/28/18 21:00 11/28/18 20:16 10 UNITS Lactobacillus Rhamnosus (Culturelle) 1 cap BID 11/28/18 21:00 11/29/18 08:45 1 CAP Levothyroxine Sodium (Synthroid) 100 mcg DAILY06 11/29/18 06:00 11/29/18 06:38 100 MCG Lisinopril (Prinivil) 10 mg DAILY 11/29/18 09:00 11/29/18 08:45 10 MG Lurasidone HCl (Latuda) 160 mg DAILYWBKFT 11/29/18 08:00 11/29/18 08:48 160 MG Metformin HCl (Glucophage Xr) 500 mg BID 11/28/18 21:00 11/29/18 08:45 500 MG Metoprolol Succinate (Toprol Xl) 25 mg DAILY 11/29/18 09:00 11/29/18 08:48 25 MG Micafungin Sodium 100 mg/Dextrose 100 ml @ 100 mls/hr Q24H 11/28/18 18:00 11/28/18 18:14 100 MLS/HR Oxcarbazepine (Trileptal) 1,200 mg DAILY 11/29/18 09:00 11/29/18 08:50 1,200 MG Pantoprazole Sodium (Protonix) 40 mg QHS 11/29/18 07:30 11/29/18 08:45 40 MG Potassium Chloride (Klor-Con) 10 meq TIDWMEALS 11/28/18 17:00 11/29/18 08:45 10 MEQ Prazosin HCl (Minipress) 1 mg QHS 11/28/18 21:00 11/28/18 20:13 1 MG Trazodone HCl (Desyrel) 100 mg HS 11/28/18 21:00 11/28/18 20:12 100 MG Vancomycin HCl (Vanco Per Pharmacy) 1 each PRN DAILY PRN 11/28/18 16:15 11/28/18 16:52 1 EACH Vancomycin HCl (Vancomycin Trough Level) 1 each 1X ONCE 11/29/18 11:00 11/29/18 11:01 Vancomycin HCl 1.5 gm/Sodium Chloride 500 ml @ 250 mls/hr Q8H 11/28/18 19:30 11/29/18 03:20 250 MLS/HR Vancomycin HCl 2 gm/Sodium Chloride 500 ml @ 250 mls/hr 1X ONCE 11/28/18 11:00 11/28/18 12:59 DC 11/28/18 11:22 250 MLS/HR Labs: Lab Laboratory Tests Test 11/28/18 09:48 11/28/18 10:15 11/28/18 13:31 11/28/18 20:12 White Blood Count 6.8 x10^3/uL (4.0-11.0) Red Blood Count 4.09 x10^6/uL (4.30-5.70) Hemoglobin 12.0 g/dL (13.0-17.5) Hematocrit 36.7 % (39.0-53.0) Mean Corpuscular Volume 90 fL (79-100) Mean Corpuscular Hemoglobin 29 pg (25-35) Mean Corpuscular Hemoglobin Concent 33 g/dL (31-37) Red Cell Distribution Width 19.5 % (11.5-14.5) Platelet Count 242 x10^3/uL (140-400) Neutrophils (%) (Auto) 59 % (31-73) Lymphocytes (%) (Auto) 20 % (24-48) Monocytes (%) (Auto) 9 % (0-9) Eosinophils (%) (Auto) 12 % (0-3) Basophils (%) (Auto) 1 % (0-3) Neutrophils # (Auto) 4.0 x10^3uL (1.8-7.7) Lymphocytes # (Auto) 1.3 x10^3/uL (1.0-4.8) Monocytes # (Auto) 0.6 x10^3/uL (0.0-1.1) Eosinophils # (Auto) 0.8 x10^3/uL (0.0-0.7) Basophils # (Auto) 0.1 x10^3/uL (0.0-0.2) Prothrombin Time 12.9 SEC (11.7-14.0) Prothromb Time International Ratio 1.0 (0.8-1.1) Sodium Level 138 mmol/L (136-145) Potassium Level 4.1 mmol/L (3.5-5.1) Chloride Level 101 mmol/L (98-107) Carbon Dioxide Level 26 mmol/L (21-32) Anion Gap 11 (6-14) Blood Urea Nitrogen 9 mg/dL (8-26) Creatinine 0.9 mg/dL (0.7-1.3) Estimated GFR (Cockcroft-Gault) 89.0 BUN/Creatinine Ratio 10 (6-20) Glucose Level 234 mg/dL (70-99) Calcium Level 8.2 mg/dL (8.5-10.1) Total Bilirubin 0.2 mg/dL (0.2-1.0) Aspartate Amino Transf (AST/SGOT) 21 U/L (15-37) Alanine Aminotransferase (ALT/SGPT) 31 U/L (16-63) Alkaline Phosphatase 135 U/L (46-116) C-Reactive Protein, Quantitative 33.8 mg/L (0-3.3) Total Protein 6.7 g/dL (6.4-8.2) Albumin 2.8 g/dL (3.4-5.0) Albumin/Globulin Ratio 0.7 (1.0-1.7) Urine Collection Type Unknown Urine Color Yellow Urine Clarity Clear Urine pH 5.5 Urine Specific [place] >=1.030 Urine Protein Negative mg/dL (NEG-TRACE) Urine Glucose (UA) >=1000 mg/dL (NEG) Urine Ketones (Stick) Negative mg/dL (NEG) Urine Blood Negative (NEG) Urine Nitrite Negative (NEG) Urine Bilirubin Negative (NEG) Urine Urobilinogen Dipstick 0.2 mg/dL (0.2 mg/dL) Urine Leukocyte Esterase Negative (NEG) Urine RBC Occ /HPF (0-2) Urine WBC 5-10 /HPF (0-4) Urine Squamous Epithelial Cells Mod /LPF Urine Bacteria Few /HPF (0-FEW) Urine Mucus Slight /LPF Glucose (Fingerstick) 158 mg/dL (70-99) 183 mg/dL (70-99) Test 11/29/18 07:55 White Blood Count 6.6 x10^3/uL (4.0-11.0) Red Blood Count 4.03 x10^6/uL (4.30-5.70) Hemoglobin 11.8 g/dL (13.0-17.5) Hematocrit 36.3 % (39.0-53.0) Mean Corpuscular Volume 90 fL (79-100) Mean Corpuscular Hemoglobin 29 pg (25-35) Mean Corpuscular Hemoglobin Concent 33 g/dL (31-37) Red Cell Distribution Width 19.4 % (11.5-14.5) Platelet Count 237 x10^3/uL (140-400) Neutrophils (%) (Auto) 56 % (31-73) Lymphocytes (%) (Auto) 22 % (24-48) Monocytes (%) (Auto) 9 % (0-9) Eosinophils (%) (Auto) 13 % (0-3) Basophils (%) (Auto) 1 % (0-3) Neutrophils # (Auto) 3.7 x10^3uL (1.8-7.7) Lymphocytes # (Auto) 1.4 x10^3/uL (1.0-4.8) Monocytes # (Auto) 0.6 x10^3/uL (0.0-1.1) Eosinophils # (Auto) 0.9 x10^3/uL (0.0-0.7) Basophils # (Auto) 0.1 x10^3/uL (0.0-0.2) Objective: Assessment: 1. Cellulitis of abdominal wall pannus with history of recurrence, last was sometime around July 2018.Pt failed clindamycin as outpatient. The patient has received Keflex off and on through [facility] primary care, but has been unable to f/u with the clinic 2. Diabetes mellitus type 1, poorly controlled. 3. Extreme morbid obesity. 4. Chronic venous stasis. 5. Multiple excoriations over lower extremity. 6. Eschar from driscoll superficial, not infected. 7. Gastroesophageal reflux disease. 8. Hyperlipidemia. 9. Hypertension. 10. History of psychiatric illness. 11. H/O LLE DVT,PE Plan: Plan of Care Cont IV Vanc, Ceftriaxone and micafungin monitor renal func closely f/u cults and labs cont supportive care Optimal glucose control. Wound care management. VONDA OSPINA MD Nov 29, 2018 09:16
[2018-11-29] MEDS ORDERED: ACETAMINOPHEN/CODEINE 300/30MG TABLET. PO PRN (09:30)
[2018-11-29] MEDS ORDERED: ONDANSETRON PF 4 MG/2 ML VIAL. IV PRN (09:30)
[2018-11-29] MEDS ORDERED: ACETAMINOPHEN 500 MG TABLET PO PRN (09:30)
[2018-11-29] MEDS ORDERED: DEXTROSE 50% 25 GM / 50ML DISP.SYRIN. IV PRN (09:30)
[2018-11-29] MEDS ORDERED: ONDANSETRON ODT 4 MG TAB.RAPDIS. PO PRN (09:30)
[2018-11-29 11:00] VITALS: BP 138/92
[2018-11-29 12:04] LABS: VANC TR 12.6 mcg/mL (10.0-20.0)
[2018-11-29] MEDS: INSULIN LISPRO 300 UNITS/3 ML INSULN.PEN. SQ SCH ×2 (12:40→17:00)
--- NOTE | 2018-11-29 12:43 | PDOC ---
PROGRESS NOTES Chief Complaint Chief Complaint Abdominal wall cellulitis Pannus Candidiasis intertriginous areas Super morbidly obesity, BMI 70 to Diabetes type 2 on OHA at home with unknown hemoglobin A1c History of Present Illness History of Present Illness I have inspected all wounds None seems to be look infected but they're inflamed though He has a cat that scratches them constantly and licks his wound Unknown hematoma A1c Claims he is only on pills at home for DM Diagnose diabetes in the adult years I did touch on bariatric surgery and gave him a referral [facility] He knows he needs to lose weight US of the scrotum shows hydroceles Plan: on IV Rocephin micafungin and another antibiotic per ID Follow cultures Needs to lose weight So far blood sugars I do believe is optimal in the hospital Check hemoglobin A1c Possibly one by mouth antibiotics in 48 hours? Needs bariatric surgery Keep scrotum elevated Vitals Vitals Vital Signs Date Time Temp Pulse Resp B/P (MAP) Pulse Ox O2 Delivery O2 Flow Rate FiO2 11/29/18 11:00 97.9 101 20 138/92 (107) 93 Room Air 97.9 Physical Exam Physical Exam GENERAL: Alert, oriented, obese male lying in bed comfortably, in no acute distress. HEENT: Normocephalic, atraumatic, anicteric. No thrush. LUNGS: Clear anteriorly. HEART: S1, S2 with no gallops or murmurs. ABDOMEN: Soft, morbidly obese, large pannus, erythematous, tender lower aspect, small numerous lipomas present scattered over the anterior abdominal wall , no induration or abscess, scar well healed. No rebound, no guarding. EXTREMITIES: Lower extremity, bilateral edema. Chronic venous stasis, chronic skin excoriation present. No purulence. No evidence of abscess in lower extremity. NEUROLOGIC: Alert and oriented x 3. Grossly nonfocal. PSYCHIATRIC: Cooperative, appropriate mood and affect. General: Alert, Oriented X3, Cooperative, mild distress Heart: Regular rate, Normal S1, Normal S2 Lungs: Other (diminished secondary to increased AP diameter) Abdomen: Normal bowel sounds, Other (very obese with erythema of large pannus, tender lower aspect) Extremities: No clubbing, No cyanosis Skin: Other (the post scratches erythematous lichenification but not wheezy or foul-smelling, in the abdominal wall, bilateral skin folds intertriginous areas , groinSwollen bilateral testicles or scrotum) Labs LABS Laboratory Tests Test 11/28/18 13:31 11/28/18 20:12 11/29/18 07:26 11/29/18 07:55 Glucose (Fingerstick) 158 mg/dL (70-99) 183 mg/dL (70-99) 154 mg/dL (70-99) White Blood Count 6.6 x10^3/uL (4.0-11.0) Red Blood Count 4.03 x10^6/uL (4.30-5.70) Hemoglobin 11.8 g/dL (13.0-17.5) Hematocrit 36.3 % (39.0-53.0) Mean Corpuscular Volume 90 fL (79-100) Mean Corpuscular Hemoglobin 29 pg (25-35) Mean Corpuscular Hemoglobin Concent 33 g/dL (31-37) Red Cell Distribution Width 19.4 % (11.5-14.5) Platelet Count 237 x10^3/uL (140-400) Neutrophils (%) (Auto) 56 % (31-73) Lymphocytes (%) (Auto) 22 % (24-48) Monocytes (%) (Auto) 9 % (0-9) Eosinophils (%) (Auto) 13 % (0-3) Basophils (%) (Auto) 1 % (0-3) Neutrophils # (Auto) 3.7 x10^3uL (1.8-7.7) Lymphocytes # (Auto) 1.4 x10^3/uL (1.0-4.8) Monocytes # (Auto) 0.6 x10^3/uL (0.0-1.1) Eosinophils # (Auto) 0.9 x10^3/uL (0.0-0.7) Basophils # (Auto) 0.1 x10^3/uL (0.0-0.2) Sodium Level 139 mmol/L (136-145) Potassium Level 4.1 mmol/L (3.5-5.1) Chloride Level 104 mmol/L (98-107) Carbon Dioxide Level 27 mmol/L (21-32) Anion Gap 8 (6-14) Blood Urea Nitrogen 6 mg/dL (8-26) Creatinine 0.7 mg/dL (0.7-1.3) Estimated GFR (Cockcroft-Gault) 118.9 Glucose Level 173 mg/dL (70-99) Calcium Level 8.5 mg/dL (8.5-10.1) Test 11/29/18 11:10 11/29/18 11:22 Vancomycin Level Trough 12.6 mcg/mL (10.0-20.0) Vancomycin Last Dose Date 11/29/18 Vancomycin Last Dose Time 0330 Glucose (Fingerstick) 190 mg/dL (70-99) Review of Systems Review of Systems A 14 point ROS was completed with the following noted as positive: Other systems reviewed and negative. \CONSTITUTIONAL: No fever or chills EYES: No recent changes SKIN: No rash or itching CARDIOVASCULAR: No chest pain, syncope, palpitations, or edema RESPIRATORY: No SOB or cough GASTROINTESTINAL: No nausea, vomiting or abdominal pain NEUROLOGICAL: No headaches or weakness ENDOCRINE: No cold or heat intolerance GENITOURINARY: No urgency or frequency of urination MUSCULOSKELETAL: No back pain or joint pain LYMPHATICS: No enlarged lymph nodes PSYCHIATRIC: No anxiety or depression Assessment and Plan Assessmemt and Plan Problems Medical Problems: (1) Cellulitis Status: Acute (2) Morbid obesity Status: Acute Comment Review of Relevant I have reviewed the following items tari (where applicable) has been applied. Labs Laboratory Tests Test 11/28/18 09:48 11/28/18 10:15 11/28/18 13:31 11/28/18 20:12 White Blood Count 6.8 x10^3/uL (4.0-11.0) Red Blood Count 4.09 x10^6/uL (4.30-5.70) Hemoglobin 12.0 g/dL (13.0-17.5) Hematocrit 36.7 % (39.0-53.0) Mean Corpuscular Volume 90 fL (79-100) Mean Corpuscular Hemoglobin 29 pg (25-35) Mean Corpuscular Hemoglobin Concent 33 g/dL (31-37) Red Cell Distribution Width 19.5 % (11.5-14.5) Platelet Count 242 x10^3/uL (140-400) Neutrophils (%) (Auto) 59 % (31-73) Lymphocytes (%) (Auto) 20 % (24-48) Monocytes (%) (Auto) 9 % (0-9) Eosinophils (%) (Auto) 12 % (0-3) Basophils (%) (Auto) 1 % (0-3) Neutrophils # (Auto) 4.0 x10^3uL (1.8-7.7) Lymphocytes # (Auto) 1.3 x10^3/uL (1.0-4.8) Monocytes # (Auto) 0.6 x10^3/uL (0.0-1.1) Eosinophils # (Auto) 0.8 x10^3/uL (0.0-0.7) Basophils # (Auto) 0.1 x10^3/uL (0.0-0.2) Prothrombin Time 12.9 SEC (11.7-14.0) Prothromb Time International Ratio 1.0 (0.8-1.1) Sodium Level 138 mmol/L (136-145) Potassium Level 4.1 mmol/L (3.5-5.1) Chloride Level 101 mmol/L (98-107) Carbon Dioxide Level 26 mmol/L (21-32) Anion Gap 11 (6-14) Blood Urea Nitrogen 9 mg/dL (8-26) Creatinine 0.9 mg/dL (0.7-1.3) Estimated GFR (Cockcroft-Gault) 89.0 BUN/Creatinine Ratio 10 (6-20) Glucose Level 234 mg/dL (70-99) Calcium Level 8.2 mg/dL (8.5-10.1) Total Bilirubin 0.2 mg/dL (0.2-1.0) Aspartate Amino Transf (AST/SGOT) 21 U/L (15-37) Alanine Aminotransferase (ALT/SGPT) 31 U/L (16-63) Alkaline Phosphatase 135 U/L (46-116) C-Reactive Protein, Quantitative 33.8 mg/L (0-3.3) Total Protein 6.7 g/dL (6.4-8.2) Albumin 2.8 g/dL (3.4-5.0) Albumin/Globulin Ratio 0.7 (1.0-1.7) Urine Collection Type Unknown Urine Color Yellow Urine Clarity Clear Urine pH 5.5 Urine Specific [place] >=1.030 Urine Protein Negative mg/dL (NEG-TRACE) Urine Glucose (UA) >=1000 mg/dL (NEG) Urine Ketones (Stick) Negative mg/dL (NEG) Urine Blood Negative (NEG) Urine Nitrite Negative (NEG) Urine Bilirubin Negative (NEG) Urine Urobilinogen Dipstick 0.2 mg/dL (0.2 mg/dL) Urine Leukocyte Esterase Negative (NEG) Urine RBC Occ /HPF (0-2) Urine WBC 5-10 /HPF (0-4) Urine Squamous Epithelial Cells Mod /LPF Urine Bacteria Few /HPF (0-FEW) Urine Mucus Slight /LPF Glucose (Fingerstick) 158 mg/dL (70-99) 183 mg/dL (70-99) Test 11/29/18 07:26 11/29/18 07:55 11/29/18 11:10 11/29/18 11:22 Glucose (Fingerstick) 154 mg/dL (70-99) 190 mg/dL (70-99) White Blood Count 6.6 x10^3/uL (4.0-11.0) Red Blood Count 4.03 x10^6/uL (4.30-5.70) Hemoglobin 11.8 g/dL (13.0-17.5) Hematocrit 36.3 % (39.0-53.0) Mean Corpuscular Volume 90 fL (79-100) Mean Corpuscular Hemoglobin 29 pg (25-35) Mean Corpuscular Hemoglobin Concent 33 g/dL (31-37) Red Cell Distribution Width 19.4 % (11.5-14.5) Platelet Count 237 x10^3/uL (140-400) Neutrophils (%) (Auto) 56 % (31-73) Lymphocytes (%) (Auto) 22 % (24-48) Monocytes (%) (Auto) 9 % (0-9) Eosinophils (%) (Auto) 13 % (0-3) Basophils (%) (Auto) 1 % (0-3) Neutrophils # (Auto) 3.7 x10^3uL (1.8-7.7) Lymphocytes # (Auto) 1.4 x10^3/uL (1.0-4.8) Monocytes # (Auto) 0.6 x10^3/uL (0.0-1.1) Eosinophils # (Auto) 0.9 x10^3/uL (0.0-0.7) Basophils # (Auto) 0.1 x10^3/uL (0.0-0.2) Sodium Level 139 mmol/L (136-145) Potassium Level 4.1 mmol/L (3.5-5.1) Chloride Level 104 mmol/L (98-107) Carbon Dioxide Level 27 mmol/L (21-32) Anion Gap 8 (6-14) Blood Urea Nitrogen 6 mg/dL (8-26) Creatinine 0.7 mg/dL (0.7-1.3) Estimated GFR (Cockcroft-Gault) 118.9 Glucose Level 173 mg/dL (70-99) Calcium Level 8.5 mg/dL (8.5-10.1) Vancomycin Level Trough 12.6 mcg/mL (10.0-20.0) Vancomycin Last Dose Date 11/29/18 Vancomycin Last Dose Time 0330 Laboratory Tests Test 11/28/18 13:31 11/28/18 20:12 11/29/18 07:26 11/29/18 07:55 Glucose (Fingerstick) 158 mg/dL (70-99) 183 mg/dL (70-99) 154 mg/dL (70-99) White Blood Count 6.6 x10^3/uL (4.0-11.0) Red Blood Count 4.03 x10^6/uL (4.30-5.70) Hemoglobin 11.8 g/dL (13.0-17.5) Hematocrit 36.3 % (39.0-53.0) Mean Corpuscular Volume 90 fL (79-100) Mean Corpuscular Hemoglobin 29 pg (25-35) Mean Corpuscular Hemoglobin Concent 33 g/dL (31-37) Red Cell Distribution Width 19.4 % (11.5-14.5) Platelet Count 237 x10^3/uL (140-400) Neutrophils (%) (Auto) 56 % (31-73) Lymphocytes (%) (Auto) 22 % (24-48) Monocytes (%) (Auto) 9 % (0-9) Eosinophils (%) (Auto) 13 % (0-3) Basophils (%) (Auto) 1 % (0-3) Neutrophils # (Auto) 3.7 x10^3uL (1.8-7.7) Lymphocytes # (Auto) 1.4 x10^3/uL (1.0-4.8) Monocytes # (Auto) 0.6 x10^3/uL (0.0-1.1) Eosinophils # (Auto) 0.9 x10^3/uL (0.0-0.7) Basophils # (Auto) 0.1 x10^3/uL (0.0-0.2) Sodium Level 139 mmol/L (136-145) Potassium Level 4.1 mmol/L (3.5-5.1) Chloride Level 104 mmol/L (98-107) Carbon Dioxide Level 27 mmol/L (21-32) Anion Gap 8 (6-14) Blood Urea Nitrogen 6 mg/dL (8-26) Creatinine 0.7 mg/dL (0.7-1.3) Estimated GFR (Cockcroft-Gault) 118.9 Glucose Level 173 mg/dL (70-99) Calcium Level 8.5 mg/dL (8.5-10.1) Test 11/29/18 11:10 11/29/18 11:22 Vancomycin Level Trough 12.6 mcg/mL (10.0-20.0) Vancomycin Last Dose Date 11/29/18 Vancomycin Last Dose Time 0330 Glucose (Fingerstick) 190 mg/dL (70-99) Microbiology 11/28/18 Blood Culture - Preliminary, Resulted NO GROWTH AFTER 1 DAY Medications Current Medications Acetaminophen (Tylenol) 650 mg PRN Q4HRS PRN PO FEVER Last administered on 11/28at 10:46; Start 11/28/18 at 10:45; Stop 11/29/18 at 10:44; Status DC Vancomycin HCl 2 gm/Sodium Chloride 500 ml @ 250 mls/hr 1X ONCE IV Last administered on 11/28/18at 11:22; Start 11/28/18 at 11:00; Stop 11/28/18 at 12:59 ; Status DC Atorvastatin Calcium (Lipitor) 40 mg HS PO Last administered on 11/28/18at 20:12 ; Start 11/28/18 at 21:00 Furosemide (Lasix) 80 mg DAILY PO Last administered on 11/29/18at 08:46; Start 11/29/18 at 09:00 Acetaminophen/ Hydrocodone Bitart (Lortab 5/325) 1 tab PRN Q6HRS PRN PO MODERATE PAIN Last administered on 11/29/18at 02:20; Start 11/28/18 at 16:15 Levothyroxine Sodium (Synthroid) 100 mcg DAILY06 PO Last administered on 06:38; Start 11/29/18 at 06:00 Lisinopril (Prinivil) 10 mg DAILY PO Last administered on 11/29/18 08:45; Start 11/29/18 at 09:00 Metoprolol Succinate (Toprol Xl) 25 mg DAILY PO Last administered on 11/29/18 08:48; Start 11/29/18 at 09:00 Potassium Chloride (Klor-Con) 10 meq TIDWMEALS PO Last administered on 08:45; Start 11/28/18 at 17:00 Trazodone HCl (Desyrel) 100 mg HS PO Last administered on 11/28/18 20:12; Start 11/28/18 at 21:00 Buspirone HCl (Buspar) 15 mg TID PO Last administered on 11/29/18 08:48; Start 11/28/18 at 16:15 Fenofibrate (Lofibra) 134 mg DAILY PO Last administered on 11/29/18 09:11; Start 11/29/18 at 09:00 Insulin Glargine (Lantus) 10 units QHS SQ Last administered on 11/28/18 20:16 ; Start 11/28/18 at 21:00 Lurasidone HCl (Latuda) 160 mg DAILYWBKFT PO Last administered on 11/29/18 08: 48; Start 11/29/18 at 08:00 Metformin HCl (Glucophage Xr) 500 mg BID PO Last administered on 11/29/18 08: 45; Start 11/28/18 at 21:00 Fish Oil (Fish Oil) 2,000 mg BID PO Last administered on 11/29/18 08:47; Start 11/28/18 at 21:00 Pantoprazole Sodium (Protonix) 40 mg QHS PO Last administered on 11/29/18 08: 45; Start 11/29/18 at 07:30 Oxcarbazepine (Trileptal) 1,200 mg DAILY PO Last administered on 11/29/18 08: 50; Start 11/29/18 at 09:00 Prazosin HCl (Minipress) 1 mg QHS PO Last administered on 11/28/18 20:13; Start 11/28/18 at 21:00 Famotidine (Pepcid) 20 mg BID PO Last administered on 11/29/18 08:45; Start at 21:00 Heparin Sodium (Porcine) (Heparin Sodium) 5,000 unit Q8HRS SQ Last administered on 11/29/18 06:40; Start 11/28/18 at 16:15 Vancomycin HCl (Vanco Per Pharmacy) 1 each PRN DAILY PRN MC SEE COMMENTS Last administered on 11/28/18 16:52; Start 11/28/18 at 16:15 Vancomycin HCl 1.5 gm/Sodium Chloride 500 ml @ 250 mls/hr Q8H IV Last administered on 11/29/18 03:20; Start 11/28/18 at 19:30 Vancomycin HCl (Vancomycin Trough Level) 1 each 1X ONCE MC Last administered on 11/29/18 11:00; Start 11/29/18 at 11:00; Stop 11/29/18 at 11:01; Status DC Lactobacillus Rhamnosus (Culturelle) 1 cap BID PO Last administered on 08:45; Start 11/28/18 at 21:00 Ceftriaxone Sodium (Rocephin) 2 gm Q24H IVP Last administered on 11/28/18 17: 59; Start 11/28/18 at 17:30 Micafungin Sodium 100 mg/Dextrose 100 ml @ 100 mls/hr Q24H IV Last administered on 11/28/18 18:14; Start 11/28/18 at 18:00 Ondansetron HCl (Zofran) 4 mg PRN Q6HRS PRN IV NAUSEA/VOMITING; Start 11/29/18 at 09:30 Ondansetron HCl (Zofran Odt) 4 mg PRN Q6HRS PRN PO NAUSEA/VOMITING; Start 11/29 at 09:30 Acetaminophen (Tylenol) 500 mg PRN Q6HRS PRN PO MILD PAIN / TEMP; Start at 09:30 Acetaminophen/ Codeine Phosphate (Tylenol #3) 1 tab PRN Q6HRS PRN PO MODERATE PAIN; Start 11/29/18 at 09:30 Insulin Human Lispro (HumaLOG) 0-9 UNITS TIDWMEALS SQ ; Start 11/29/18 at 12:00 Dextrose (Dextrose 50%-Water Syringe) 12.5 gm PRN Q15MIN PRN IV SEE COMMENTS; Start 11/29/18 at 09:30 Active Scripts Active Clindamycin Hcl 300 Mg Capsule 1 Cap PO TID [employer] 5-325 Tablet (Acetaminophen/Hydrocodone Bitart) 1 Each Tablet 1 Tab PO PRN Q6HRS PRN Reported Levemir Flexpen (Insulin Detemir) 100 Unit/1 Ml Insuln.pen 10 Unit SQ HS Fenofibrate 160 Mg Tablet 160 Mg PO DAILY Atorvastatin Calcium 40 Mg Tablet 40 Mg PO HS Omeprazole 20 Mg Capsule.dr 20 Mg PO HS Prazosin Hcl 1 Mg Capsule 1 Mg PO HS Trazodone Hcl 100 Mg Tablet 100 Mg PO HS Zolpidem Tartrate 10 Mg Tablet 10 Mg PO HS Oxcarbazepine 600 Mg Tablet 1,200 Mg PO DAILY Latuda (Lurasidone Hcl) 80 Mg Tablet 160 Mg PO DAILY Buspirone Hcl 15 Mg Tablet 15 Mg PO TID Potassium Chloride 10 Meq Capsule.er 10 Meq PO TID Ranitidine Hcl 150 Mg Tablet 150 Mg PO BID Metformin Hcl Er (Metformin Hcl) 500 Mg Tab.er.24 500 Mg PO BID Lovaza ([place]-3 Acid Ethyl Esters) 1 Gm Capsule 2 Gm PO BID Lisinopril 10 Mg Tablet 10 Mg PO DAILY Levothyroxine Sodium 100 Mcg Tablet 100 Mcg PO DAILY Lasix (Furosemide) 80 Mg Tablet 80 Mg PO DAILY Metoprolol Succinate ( Xl ) (Metoprolol Succinate) 25 Mg Tab.er.24h 25 Mg PO DAILY Vitals/I & O Vital Sign - Last 24 Hours 11/28/18 11/28/18 11/28/18 11/28/18 14:01 14:02 15:11 19:00 Temp 98.0 98.1 98.4 98.0 98.1 98.4 Pulse 99 88 99 Resp 20 20 20 B/P (MAP) 116/70 (85) 110/69 (83) 141/76 (97) Pulse Ox 93 93 94 O2 Delivery Room Air Room Air Room Air Room Air 11/28/18 11/28/18 11/28/18 11/29/18 20:00 20:13 23:00 02:20 Temp 97.7 97.7 Pulse 99 100 Resp 20 B/P (MAP) 141/76 155/85 (108) Pulse Ox 92 O2 Delivery Room Air Room Air Room Air 11/29/18 11/29/18 11/29/18 11/29/18 03:00 03:28 07:00 08:00 Temp 98.4 98.4 98.4 98.4 Pulse 101 103 Resp 20 20 B/P (MAP) 93/58 (70) 134/74 (94) Pulse Ox 92 92 92 O2 Delivery Room Air Room Air 11/29/18 11/29/18 11/29/18 08:45 08:48 11:00 Temp 97.9 97.9 Pulse 103 103 101 Resp 20 B/P (MAP) 134/74 134/74 138/92 (107) Pulse Ox 93 O2 Delivery Room Air Intake and Output 11/28/18 11/28/18 11/29/18 14:59 22:59 06:59 Intake Total 400 ml 240 ml Output Total 600 ml 1500 ml Balance -200 ml -1260 ml JAE DELEON MD Nov 29, 2018 12:43
--- NOTE | 2018-11-29 12:52 | NUR ---
SW following for discharge planning. Discussed with RN is from home with his cat. RN ordering PT/OT. SW will await PT/OT recommendations for discharge planning.
[2018-11-29] MEDS ORDERED: FUROSEMIDE 40 MG/4 ML VIAL. IVP ONE (13:00)
[2018-11-29 14:47] VITALS: BP 140/89
--- NOTE | 2018-11-29 15:30 | NUR ---
Wound Care Pt seen for wound care consultation re: multiple driscoll over abdomen and lower legs. Upon assessment, pt has numerous grease driscoll splattered over his abdomen, many are scabbed, but 2 areas are soft and sloughy, recommend continuing to soften and clean up with Medihoney, vasoline gauze and telfa dressing, every 3 days. Right leg and left knee are scabbed, left anterior lower leg has 3 softened sloughy crusty driscoll, areas cleaned and dressed with the same as abdomen. Lotion applied to bilateral heels that are severely dry and cracked. Pannus folds cleaned and dried, Nystatin powder applied to areas, Chux absorbant pad cut into long strips and tucked into folds to help wick away moisture. Pt turned himself onto his side for full skin inspection, no other wounds noted. Educated pt on frequent turning for pressure redistribution, pt is on a bariatric low bed. Will continue to follow for wound care needs. POC discussed with BENNIE Morton.
[2018-11-29] MEDS: VANCOMYCIN PER PHARMACY MC PRN (15:40)
--- NOTE | 2018-11-29 15:41 | NUR ---
Pharmacy Vancomycin Dosing Note S:Consulted to monitor and dose vancomycin started 11/28/18. O:MCKAYLA RAMAN is a 53 year old M with Cellulitis . Height: 5 feet, 11 inches Weight: 232.497143 kg Florien Body Weight: 75.30 Adjusted Body Weight: 135.58 Dosing Weight: Actual Other Antibiotics: ROCEPHIN, MICAFUNGIN LABS: Last BUN: 9 Last Creatinine: 0.9 Creatinine Clearance: >100 mL/min Last WBC: 6.8 Last Procalcitonin: Tmax (past 24 hours): 98.1 Microbiology: I/O: Drug Levels: Last Trough level: 12.6 on 11/29/18 at 1126 Last dose given 11/28/18 at 1122 Vancomycin Dosing: Loading Dose: 2000 mg x1 Dosing Weight: Actual Target Trough: 10-20 A: Based on: LEVEL P: 1. Continue Vancomycin 1500 mg IV q8h 2. Follow up Trough level NEEDED. 3. Pharmacy will continue to monitor, follow and adjust therapy as needed. CHRIS VALENTIN [facility], 11/29/18 [id number]
[2018-11-29] MEDS: NYSTATIN TOPICAL POWDER 15GM BOTTLE. TP SCH ×2 (15:52→20:27)
[2018-11-29] MEDS ORDERED: 0.9 % SODIUM CHLORIDE 10 ML DISP.SYRIN. IV PRN ×2 (16:45)
[2018-11-29 19:00] VITALS: BP 131/76
--- NOTE | 2018-11-29 19:02 | NUR ---
Patient lost IV access this morning around 11am. Pharmacy notified that Vancomycin dose will be late. Charge attempted twice at IV. This RN called Dr. Gila Vidal from [place] to see if this patient would be a candidate for a PICC due to possible senior care use and poor peripheral access. Dr. Sherman Vidal agreed and order placed. score caller PICC nurse successfully placed line at [phone]. This RN called pharmacy to have them re-do antibiotic dosing.
[2018-11-29] MEDS ORDERED: FUROSEMIDE 100 MG/10 ML VIAL. IVP ONE (19:15)
[2018-11-29] MEDS: cefTRIAXone IV Push 2 GM VIAL. IVP SCH (19:20)
--- NOTE | 2018-11-29 19:20 | NUR ---
PRE PICC INSERTION NOTE Allergies and reactions ALL CHECKED INR 1.0 BUN 6 Cr 0.7 Platelets 237 Blood culture done YES blood culture results PRELIMINARY NO GROWTH Order Verified YES Consent signed YES Previous PICC placement NO Past Medical/Surgical history and current diagnosis reviewed YES Patient Medical /Surgical History Related to PICC line placement None Diabetes Infectious Disease consult Septicemia/Bacteremia Special considerations for PICC line placement Anticoagulation therapy Dermatitis Infections PICC placement indication Caustic medication class drug usage, etl developer antibiotic usage, Multiple/ Frequent blood draws, Poor peripheral intravenous access name of PICC Nurse XOCHITL ST RN
--- NOTE | 2018-11-29 19:26 | NUR ---
PICC INSERTION NOTE: Procedure: Following complete explanation of the PICC procedure including the indications, risks, and potential complications, informed consent was obtained. The possibility for infection was discussed along with signs, symptoms, and prevention. All the [PATIENT'S] questions were answered. Written and verbal patient education was provided. Hand hygiene performed. Standardized central line checklist was utilized. The patient was placed in the supine position, the arm was prepped with chlorhexidine and patient draped with maximum sterile barrier. [0.5] mL 1% lidocaine was infiltrated into the skin to provide local anesthesia. A thorough assessment of [RIGHT] upper extremity completed. Using real-time ultrasound guidance and standardized micro puncture set, the [RIGHT BASILIC] vein was punctured and a peel away sheath was placed using the modified Seldinger technique. A tip location device was used to ensure adequate catheter placement. Although camera did not capture the green heart rhythm strip, that indicates correct placement, it was well noted. The catheter was secured using a securement device and an antimicrobial patch was applied directly on the insertion site followed by a transparent dressing. All ports withdraw blood and flush without resistance. Patient tolerated the procedure without apparent complication(s). [5 syriac double] Lumen Power PICC placement successful and uncomplicated. Placement verified by EKG tip confirmation system and/or chest x-ray. Tip located in the [SVC] Complications:none [] Priyank Miguel RN
[2018-11-29] MEDS: ATORVASTATIN CALCIUM 40 MG TABLET. PO SCH (20:26)
[2018-11-29] MEDS: traZODone 100 MG TABLET. PO SCH (20:26)
[2018-11-29] MEDS: PRAZOSIN 1 MG CAPSULE. PO SCH (20:26)
[2018-11-29] MEDS: INSULIN GLARGINE 300 UNITS/3 ML INSULN.PEN. SQ SCH (20:33)
[2018-11-29] MEDS: MICAFUNGIN 100 MG in IV DEXTROSE 5% 100ML 100 ML IV SCH (22:34)
[2018-11-29 23:00] VITALS: BP 118/76
[2018-11-29 23:13] LABS: HEMOGLOBIN A1C 10.9 % (4.8-5.6)
[2018-11-30 02:36] VITALS: BP 111/68
[2018-11-30] MEDS: VANCOMYCIN 1.5 GM in IV NORMAL SALINE 500ML BAG 500 ML IV SCH (03:44)
[2018-11-30] MEDS: LEVOTHYROXINE 100 MCG TABLET PO SCH (06:20)
[2018-11-30] MEDS: HEPARIN for SUB-Q USE 5,000 UNIT/ML VIAL. SQ SCH ×3 (06:21→21:12)
[2018-11-30 07:00] VITALS: BP 125/66
[2018-11-30] MEDS: INSULIN LISPRO 300 UNITS/3 ML INSULN.PEN. SQ SCH ×3 (08:00→17:00)
[2018-11-30] MEDS: OMEGA-3 FATTY ACIDS/FISH OIL 1,000 MG CAPSULE. PO SCH ×2 (08:14→21:09)
[2018-11-30] MEDS: busPIRone 5 MG TABLET. PO SCH ×3 (08:14→21:10)
[2018-11-30] MEDS: LISINOPRIL 10 MG TABLET PO SCH (08:15)
[2018-11-30] MEDS: metFORMIN XR 500 MG TAB.ER.24H PO SCH ×2 (08:15→21:10)
[2018-11-30] MEDS: LACTOBACILLUS RHAMNOSUS GG 1 CAPSULE. PO SCH ×2 (08:15→21:10)
[2018-11-30] MEDS: FAMOTIDINE 20 MG TABLET. PO SCH ×2 (08:15→21:10)
[2018-11-30] MEDS: METOPROLOL SUCC 24HR ER 25 MG TAB.ER.24H. PO SCH (08:15)
[2018-11-30] MEDS: NYSTATIN TOPICAL POWDER 15GM BOTTLE. TP SCH ×2 (08:15→21:11)
[2018-11-30] MEDS: OXcarbazepine 300 MG TABLET PO SCH (08:15)
[2018-11-30] MEDS: FUROSEMIDE 80 MG TABLET. PO SCH (08:16)
[2018-11-30] MEDS: POTASSIUM CHLORIDE 10 MEQ TABLET.ER. PO SCH ×3 (08:16→17:35)
[2018-11-30] MEDS: LURASIDONE 40 MG TABLET. PO SCH (08:16)
[2018-11-30] MEDS: FENOFIBRATE,MICRONIZED 134 MG CAPSULE PO SCH (08:16)
--- NOTE | 2018-11-30 10:40 | PDOC ---
PROGRESS NOTES Chief Complaint Chief Complaint Abdominal wall cellulitis Pannus Candidiasis intertriginous areas Super morbidly obesity, BMI 70 to Diabetes type 2 on OHA at home with hemoglobin A1c 10.9 History of Present Illness History of Present Illness Coughing some today-productive sounding I have inspected all wounds None seems to be look infected but they're inflamed though - inflammation getting better day 2 He has a cat that scratches them constantly and licks his wound [id number] 10.9 Claims he is only on pills at home for DM Diagnose diabetes in the adult years I did touch on bariatric surgery and gave him a referral [facility] He knows he needs to lose weight US of the scrotum shows hydroceles - still swollen Plan: on IV Rocephin micafungin and another antibiotic per ID Follow cultures Needs to lose weight So far blood sugars I do believe is optimal in the hospital cont nystatin to skin folds Possibly one by mouth antibiotics in 48 hours? Needs bariatric surgery Keep scrotum elevated check 2 views chest x-ray Vitals Vitals Vital Signs Date Time Temp Pulse Resp B/P (MAP) Pulse Ox O2 Delivery O2 Flow Rate FiO2 11/30/18 08:15 86 125/66 11/30/18 08:00 Room Air 11/30/18 07:00 97.9 18 90 97.9 Physical Exam Physical Exam GENERAL: Alert, oriented, obese male lying in bed comfortably, in no acute distress. HEENT: Normocephalic, atraumatic, anicteric. No thrush. LUNGS: Clear anteriorly. HEART: S1, S2 with no gallops or murmurs. ABDOMEN: Soft, morbidly obese, large pannus, erythematous, tender lower aspect, small numerous lipomas present scattered over the anterior abdominal wall , no induration or abscess, scar well healed. No rebound, no guarding. EXTREMITIES: Lower extremity, bilateral edema. Chronic venous stasis, chronic skin excoriation present. No purulence. No evidence of abscess in lower extremity. NEUROLOGIC: Alert and oriented x 3. Grossly nonfocal. PSYCHIATRIC: Cooperative, appropriate mood and affect. General: Alert, Oriented X3, Cooperative, mild distress Heart: Regular rate, Normal S1, Normal S2 Lungs: Other (diminished secondary to increased AP diameter) Abdomen: Normal bowel sounds, Other (very obese with erythema of large pannus, tender lower aspect) Extremities: No clubbing, No cyanosis Skin: Other (the post scratches erythematous lichenification but not wheezy or foul-smelling, in the abdominal wall, bilateral skin folds intertriginous areas , groinSwollen bilateral testicles or scrotum) Labs LABS Laboratory Tests Test 11/29/18 11:10 11/29/18 11:22 11/29/18 16:04 11/29/18 20:16 Vancomycin Level Trough 12.6 mcg/mL (10.0-20.0) Vancomycin Last Dose Date 11/29/18 Vancomycin Last Dose Time 0330 Glucose (Fingerstick) 190 mg/dL (70-99) 168 mg/dL (70-99) 160 mg/dL (70-99) Test 11/30/18 07:46 Glucose (Fingerstick) 146 mg/dL (70-99) Review of Systems Review of Systems A 14 point ROS was completed with the following noted as positive: Other systems reviewed and negative. \CONSTITUTIONAL: No fever or chills EYES: No recent changes SKIN: No rash or itching CARDIOVASCULAR: No chest pain, syncope, palpitations, or edema RESPIRATORY: No SOB or cough GASTROINTESTINAL: No nausea, vomiting or abdominal pain NEUROLOGICAL: No headaches or weakness ENDOCRINE: No cold or heat intolerance GENITOURINARY: No urgency or frequency of urination MUSCULOSKELETAL: No back pain or joint pain LYMPHATICS: No enlarged lymph nodes PSYCHIATRIC: No anxiety or depression Assessment and Plan Assessmemt and Plan Problems Medical Problems: (1) Cellulitis Status: Acute (2) Morbid obesity Status: Acute Comment Review of Relevant I have reviewed the following items tari (where applicable) has been applied. Labs Laboratory Tests Test 11/28/18 13:31 11/28/18 17:35 11/28/18 20:12 11/29/18 07:26 Glucose (Fingerstick) 158 mg/dL (70-99) 183 mg/dL (70-99) 154 mg/dL (70-99) Nasal Screen MRSA (PCR) Negative (Negative) Test 11/29/18 07:55 11/29/18 11:10 11/29/18 11:22 11/29/18 16:04 White Blood Count 6.6 x10^3/uL (4.0-11.0) Red Blood Count 4.03 x10^6/uL (4.30-5.70) Hemoglobin 11.8 g/dL (13.0-17.5) Hematocrit 36.3 % (39.0-53.0) Mean Corpuscular Volume 90 fL (79-100) Mean Corpuscular Hemoglobin 29 pg (25-35) Mean Corpuscular Hemoglobin Concent 33 g/dL (31-37) Red Cell Distribution Width 19.4 % (11.5-14.5) Platelet Count 237 x10^3/uL (140-400) Neutrophils (%) (Auto) 56 % (31-73) Lymphocytes (%) (Auto) 22 % (24-48) Monocytes (%) (Auto) 9 % (0-9) Eosinophils (%) (Auto) 13 % (0-3) Basophils (%) (Auto) 1 % (0-3) Neutrophils # (Auto) 3.7 x10^3uL (1.8-7.7) Lymphocytes # (Auto) 1.4 x10^3/uL (1.0-4.8) Monocytes # (Auto) 0.6 x10^3/uL (0.0-1.1) Eosinophils # (Auto) 0.9 x10^3/uL (0.0-0.7) Basophils # (Auto) 0.1 x10^3/uL (0.0-0.2) Sodium Level 139 mmol/L (136-145) Potassium Level 4.1 mmol/L (3.5-5.1) Chloride Level 104 mmol/L (98-107) Carbon Dioxide Level 27 mmol/L (21-32) Anion Gap 8 (6-14) Blood Urea Nitrogen 6 mg/dL (8-26) Creatinine 0.7 mg/dL (0.7-1.3) Estimated GFR (Cockcroft-Gault) 118.9 Glucose Level 173 mg/dL (70-99) Hemoglobin A1c 10.9 % (4.8-5.6) Calcium Level 8.5 mg/dL (8.5-10.1) Vancomycin Level Trough 12.6 mcg/mL (10.0-20.0) Vancomycin Last Dose Date 11/29/18 Vancomycin Last Dose Time 0330 Glucose (Fingerstick) 190 mg/dL (70-99) 168 mg/dL (70-99) Test 11/29/18 20:16 11/30/18 07:46 Glucose (Fingerstick) 160 mg/dL (70-99) 146 mg/dL (70-99) Laboratory Tests Test 11/29/18 11:10 11/29/18 11:22 11/29/18 16:04 11/29/18 20:16 Vancomycin Level Trough 12.6 mcg/mL (10.0-20.0) Vancomycin Last Dose Date 11/29/18 Vancomycin Last Dose Time 0330 Glucose (Fingerstick) 190 mg/dL (70-99) 168 mg/dL (70-99) 160 mg/dL (70-99) Test 11/30/18 07:46 Glucose (Fingerstick) 146 mg/dL (70-99) Microbiology 11/28/18 Blood Culture - Preliminary, Resulted NO GROWTH AFTER 2 DAYS 11/28/18 Urine Culture - Final, Complete 11/28/18 Urine Culture Result 1 (KAREN) - Final, Complete Medications Current Medications Acetaminophen (Tylenol) 650 mg PRN Q4HRS PRN PO FEVER Last administered on 11/28at 10:46; Start 11/28/18 at 10:45; Stop 11/29/18 at 10:44; Status DC Vancomycin HCl 2 gm/Sodium Chloride 500 ml @ 250 mls/hr 1X ONCE IV Last administered on 11/28/18at 11:22; Start 11/28/18 at 11:00; Stop 11/28/18 at 12:59 ; Status DC Atorvastatin Calcium (Lipitor) 40 mg HS PO Last administered on 11/29/18at 20:26 ; Start 11/28/18 at 21:00 Furosemide (Lasix) 80 mg DAILY PO Last administered on 11/30/18at 08:16; Start 11/29/18 at 09:00 Acetaminophen/ Hydrocodone Bitart (Lortab 5/325) 1 tab PRN Q6HRS PRN PO MODERATE PAIN Last administered on 11/29/18at 02:20; Start 11/28/18 at 16:15 Levothyroxine Sodium (Synthroid) 100 mcg DAILY06 PO Last administered on at 06:20; Start 11/29/18 at 06:00 Lisinopril (Prinivil) 10 mg DAILY PO Last administered on 11/30/18at 08:15; Start 11/29/18 at 09:00 Metoprolol Succinate (Toprol Xl) 25 mg DAILY PO Last administered on 11/30/18 08:15; Start 11/29/18 at 09:00 Potassium Chloride (Klor-Con) 10 meq TIDWMEALS PO Last administered on 08:16; Start 11/28/18 at 17:00 Trazodone HCl (Desyrel) 100 mg HS PO Last administered on 11/29/18 20:26; Start 11/28/18 at 21:00 Buspirone HCl (Buspar) 15 mg TID PO Last administered on 11/30/18 08:14; Start 11/28/18 at 16:15 Fenofibrate (Lofibra) 134 mg DAILY PO Last administered on 11/30/18 08:16; Start 11/29/18 at 09:00 Insulin Glargine (Lantus) 10 units QHS SQ Last administered on 11/29/18 20:33 ; Start 11/28/18 at 21:00 Lurasidone HCl (Latuda) 160 mg DAILYWBKFT PO Last administered on 11/30/18 08: 16; Start 11/29/18 at 08:00 Metformin HCl (Glucophage Xr) 500 mg BID PO Last administered on 11/30/18 08: 15; Start 11/28/18 at 21:00 Fish Oil (Fish Oil) 2,000 mg BID PO Last administered on 11/30/18 08:14; Start 11/28/18 at 21:00 Pantoprazole Sodium (Protonix) 40 mg QHS PO Last administered on 11/29/18 20: 26; Start 11/29/18 at 07:30 Oxcarbazepine (Trileptal) 1,200 mg DAILY PO Last administered on 11/30/18 08: 15; Start 11/29/18 at 09:00 Prazosin HCl (Minipress) 1 mg QHS PO Last administered on 11/29/18 20:26; Start 11/28/18 at 21:00 Famotidine (Pepcid) 20 mg BID PO Last administered on 11/30/18 08:15; Start at 21:00 Heparin Sodium (Porcine) (Heparin Sodium) 5,000 unit Q8HRS SQ Last administered on 11/30/18at 06:21; Start 11/28/18 at 16:15 Vancomycin HCl (Vanco Per Pharmacy) 1 each PRN DAILY PRN MC SEE COMMENTS Last administered on 11/29/18at 15:40; Start 11/28/18 at 16:15 Vancomycin HCl 1.5 gm/Sodium Chloride 500 ml @ 250 mls/hr Q8H IV Last administered on 11/29/18 03:20; Start 11/28/18 at 19:30; Stop 11/29/18 at 19:03 ; Status DC Vancomycin HCl (Vancomycin Trough Level) 1 each 1X ONCE MC Last administered on 11/29/18at 11:00; Start 11/29/18 at 11:00; Stop 11/29/18 at 11:01; Status DC Lactobacillus Rhamnosus (Culturelle) 1 cap BID PO Last administered on at 08:15; Start 11/28/18 at 21:00 Ceftriaxone Sodium (Rocephin) 2 gm Q24H IVP Last administered on 11/29/18at 19: 20; Start 11/28/18 at 17:30 Micafungin Sodium 100 mg/Dextrose 100 ml @ 100 mls/hr Q24H IV Last administered on 11/29/18at 22:34; Start 11/28/18 at 18:00 Ondansetron HCl (Zofran) 4 mg PRN Q6HRS PRN IV NAUSEA/VOMITING; Start 11/29/18 at 09:30 Ondansetron HCl (Zofran Odt) 4 mg PRN Q6HRS PRN PO NAUSEA/VOMITING; Start 11/29 at 09:30 Acetaminophen (Tylenol) 500 mg PRN Q6HRS PRN PO MILD PAIN / TEMP; Start at 09:30 Acetaminophen/ Codeine Phosphate (Tylenol #3) 1 tab PRN Q6HRS PRN PO MODERATE PAIN; Start 11/29/18 at 09:30 Insulin Human Lispro (HumaLOG) 0-9 UNITS TIDWMEALS SQ Last administered on 11/29at 17:00; Start 11/29/18 at 12:00 Dextrose (Dextrose 50%-Water Syringe) 12.5 gm PRN Q15MIN PRN IV SEE COMMENTS; Start 11/29/18 at 09:30 Furosemide (Lasix) 60 mg 1X ONCE IVP ; Start 11/29/18 at 13:00; Stop 11/29/18 at 19:09; Status DC Nystatin (Nystop) 1 julius BID TP Last administered on 11/30/18at 08:15; Start 10/05 at 13:00 Sodium Chloride (Normal Saline Flush) 10 ml QSHIFT PRN IV AFTER MEDS AND BLOOD DRAWS; Start 11/29/18 at 16:45 Sodium Chloride (Normal Saline Flush) 20 ml QSHIFT PRN IV AFTER MEDS AND BLOOD DRAWS; Start 11/29/18 at 16:45 Vancomycin HCl 1.5 gm/Sodium Chloride 500 ml @ 250 mls/hr Q8H IV Last administered on 11/30/18at 03:44; Start 11/29/18 at 19:00 Furosemide (Lasix) 60 mg 1X ONCE IVP Last administered on 11/29/18at 19:27; Start 11/29/18 at 19:15; Stop 11/29/18 at 19:20; Status DC Active Scripts Active Clindamycin Hcl 300 Mg Capsule 1 Cap PO TID [place] 5-325 Tablet (Acetaminophen/Hydrocodone Bitart) 1 Each Tablet 1 Tab PO PRN Q6HRS PRN Reported Levemir Flexpen (Insulin Detemir) 100 Unit/1 Ml Insuln.pen 10 Unit SQ HS Fenofibrate 160 Mg Tablet 160 Mg PO DAILY Atorvastatin Calcium 40 Mg Tablet 40 Mg PO HS Omeprazole 20 Mg Capsule.dr 20 Mg PO HS Prazosin Hcl 1 Mg Capsule 1 Mg PO HS Trazodone Hcl 100 Mg Tablet 100 Mg PO HS Zolpidem Tartrate 10 Mg Tablet 10 Mg PO HS Oxcarbazepine 600 Mg Tablet 1,200 Mg PO DAILY Latuda (Lurasidone Hcl) 80 Mg Tablet 160 Mg PO DAILY Buspirone Hcl 15 Mg Tablet 15 Mg PO TID Potassium Chloride 10 Meq Capsule.er 10 Meq PO TID Ranitidine Hcl 150 Mg Tablet 150 Mg PO BID Metformin Hcl Er (Metformin Hcl) 500 Mg Tab.er.24 500 Mg PO BID Lovaza ([place]-3 Acid Ethyl Esters) 1 Gm Capsule 2 Gm PO BID Lisinopril 10 Mg Tablet 10 Mg PO DAILY Levothyroxine Sodium 100 Mcg Tablet 100 Mcg PO DAILY Lasix (Furosemide) 80 Mg Tablet 80 Mg PO DAILY Metoprolol Succinate ( Xl ) (Metoprolol Succinate) 25 Mg Tab.er.24h 25 Mg PO DAILY Vitals/I & O Vital Sign - Last 24 Hours 11/29/18 11/29/18 11/29/18 11/29/18 11:00 14:47 19:00 20:00 Temp 97.9 97.8 99.1 97.9 97.8 99.1 Pulse 101 101 101 Resp B/P (MAP) 138/92 (107) 140/89 (106) 131/76 (94) Pulse Ox 93 94 94 O2 Delivery Room Air Room Air Room Air Room Air 11/29/18 11/29/18 11/30/18 11/30/18 20:26 23:00 02:36 07:00 Temp 98.8 98.9 97.9 98.8 98.9 97.9 Pulse 101 86 96 86 Resp 18 B/P (MAP) 131/76 118/76 (90) 111/68 (82) 125/66 (85) Pulse Ox 95 93 90 O2 Delivery Room Air Room Air Room Air 11/30/18 11/30/18 11/30/18 08:00 08:15 08:15 Pulse 86 86 B/P (MAP) 125/66 125/66 O2 Delivery Room Air Intake and Output 11/29/18 11/29/18 11/30/18 15:00 23:00 07:00 Intake Total 600 ml 300 ml 600 ml Output Total 3400 ml 1800 ml 2300 ml Balance -2800 ml -1500 ml -1700 ml JAE DELEON MD Nov 30, 2018 10:40
[2018-11-30 11:00] VITALS: BP 130/64
--- NOTE | 2018-11-30 11:05 | PDOC ---
Infectious Disease Note Subjective: Subjective Pt says he is feeling better pain ,swelling of abdo wall is improving no f/c/n/v/d no sob or cough ROS: ROS Negative except for above. Vital Signs: Vital Signs Vital Signs Date Time Temp Pulse Resp B/P (MAP) Pulse Ox O2 Delivery O2 Flow Rate FiO2 11/30/18 08:15 86 125/66 11/30/18 08:00 Room Air 11/30/18 07:00 97.9 18 90 97.9 Physical Exam: PHYSICAL EXAM GENERAL: Alert, oriented, obese male lying in bed comfortably, in no acute distress. HEENT: Normocephalic, atraumatic, anicteric. No thrush. LUNGS: Clear anteriorly. HEART: S1, S2 with no gallops or murmurs. ABDOMEN: Soft, morbidly obese, large pannus, erythematous, tender lower aspect, small numerous lipomas present scattered over the anterior abdominal wall , no induration or abscess, scar well healed. No rebound, no guarding. EXTREMITIES: Lower extremity, bilateral edema. Chronic venous stasis, chronic skin excoriation present. No purulence. No evidence of abscess in lower extremity. NEUROLOGIC: Alert and oriented x 3. Grossly nonfocal. PSYCHIATRIC: Cooperative, appropriate mood and affect. Medications: Inpatient Meds: Current Medications Medications (Trade) Dose Ordered Sig/Maryellen Start Time Stop Time Status Last Admin Dose Admin Acetaminophen (Tylenol) 500 mg PRN Q6HRS PRN 11/29/18 09:30 Acetaminophen/ Codeine Phosphate (Tylenol #3) 1 tab PRN Q6HRS PRN 11/29/18 09:30 Acetaminophen/ Hydrocodone Bitart (Lortab 5/325) 1 tab PRN Q6HRS PRN 11/28/18 16:15 11/29/18 02:20 1 TAB Atorvastatin Calcium (Lipitor) 40 mg HS 11/28/18 21:00 11/29/18 20:26 40 MG Buspirone HCl (Buspar) 15 mg TID 11/28/18 16:15 11/30/18 08:14 15 MG Ceftriaxone Sodium (Rocephin) 2 gm Q24H 11/28/18 17:30 11/29/18 19:20 2 GM Dextrose (Dextrose 50%-Water Syringe) 12.5 gm PRN Q15MIN PRN 11/29/18 09:30 Famotidine (Pepcid) 20 mg BID 11/28/18 21:00 11/30/18 08:15 20 MG Fenofibrate (Lofibra) 134 mg DAILY 11/29/18 09:00 11/30/18 08:16 134 MG Fish Oil (Fish Oil) 2,000 mg BID 11/28/18 21:00 11/30/18 08:14 2,000 MG Furosemide (Lasix) 60 mg 1X ONCE 11/29/18 19:15 11/29/18 19:20 DC 11/29/18 19:27 60 MG Guaifenesin (Robitussin Dm) 10 ml QID 11/30/18 12:00 Heparin Sodium (Porcine) (Heparin Sodium) 5,000 unit Q8HRS 11/28/18 16:15 11/30/18 06:21 5,000 UNIT Insulin Glargine (Lantus) 10 units QHS 11/28/18 21:00 11/29/18 20:33 10 UNITS Insulin Human Lispro (HumaLOG) 0-9 UNITS TIDWMEALS 11/29/18 12:00 11/29/18 17:00 4 UNITS Lactobacillus Rhamnosus (Culturelle) 1 cap BID 11/28/18 21:00 11/30/18 08:15 1 CAP Levothyroxine Sodium (Synthroid) 100 mcg DAILY06 11/29/18 06:00 11/30/18 06:20 100 MCG Lisinopril (Prinivil) 10 mg DAILY 11/29/18 09:00 11/30/18 08:15 10 MG Lurasidone HCl (Latuda) 160 mg DAILYWBKFT 11/29/18 08:00 11/30/18 08:16 160 MG Metformin HCl (Glucophage Xr) 500 mg BID 11/28/18 21:00 11/30/18 08:15 500 MG Metoprolol Succinate (Toprol Xl) 25 mg DAILY 11/29/18 09:00 11/30/18 08:15 25 MG Micafungin Sodium 100 mg/Dextrose 100 ml @ 100 mls/hr Q24H 11/28/18 18:00 11/29/18 22:34 100 MLS/HR Nystatin (Nystop) 1 julius BID 11/29/18 13:00 11/30/18 08:15 1 JULIUS Ondansetron HCl (Zofran Odt) 4 mg PRN Q6HRS PRN 11/29/18 09:30 Ondansetron HCl (Zofran) 4 mg PRN Q6HRS PRN 11/29/18 09:30 Oxcarbazepine (Trileptal) 1,200 mg DAILY 11/29/18 09:00 11/30/18 08:15 1,200 MG Pantoprazole Sodium (Protonix) 40 mg QHS 11/29/18 07:30 11/29/18 20:26 40 MG Potassium Chloride (Klor-Con) 10 meq TIDWMEALS 11/28/18 17:00 11/30/18 08:16 10 MEQ Prazosin HCl (Minipress) 1 mg QHS 11/28/18 21:00 11/29/18 20:26 1 MG Sodium Chloride (Normal Saline Flush) 20 ml QSHIFT PRN 11/29/18 16:45 Trazodone HCl (Desyrel) 100 mg HS 11/28/18 21:00 11/29/18 20:26 100 MG Vancomycin HCl (Vanco Per Pharmacy) 1 each PRN DAILY PRN 11/28/18 16:15 11/29/18 15:40 1 EACH Vancomycin HCl (Vancomycin Trough Level) 1 each 1X ONCE 11/29/18 11:00 11/29/18 11:01 DC 11/29/18 11:00 1 EACH Vancomycin HCl 1.5 gm/Sodium Chloride 500 ml @ 250 mls/hr Q8H 11/29/18 19:00 11/30/18 03:44 250 MLS/HR Vancomycin HCl 2 gm/Sodium Chloride 500 ml @ 250 mls/hr 1X ONCE 11/28/18 11:00 11/28/18 12:59 DC 11/28/18 11:22 250 MLS/HR Labs: Lab Laboratory Tests Test 11/29/18 11:10 11/29/18 11:22 11/29/18 16:04 11/29/18 20:16 Vancomycin Level Trough 12.6 mcg/mL (10.0-20.0) Vancomycin Last Dose Date 11/29/18 Vancomycin Last Dose Time 0330 Glucose (Fingerstick) 190 mg/dL (70-99) 168 mg/dL (70-99) 160 mg/dL (70-99) Test 11/30/18 07:46 Glucose (Fingerstick) 146 mg/dL (70-99) Objective: Assessment: 1. Cellulitis of abdominal wall pannus with history of recurrence, last was sometime around July 2018.Pt failed clindamycin as outpatient. The patient has received Keflex off and on through [facility] primary care, but has been unable to f/u with the clinic Improving 2. Diabetes mellitus type 1, poorly controlled. 3. Extreme morbid obesity. 4. Chronic venous stasis. 5. Multiple excoriations over lower extremity. 6. Eschar from driscoll superficial, not infected. 7. Gastroesophageal reflux disease. 8. Hyperlipidemia. 9. Hypertension. 10. History of psychiatric illness. 11. H/O LLE DVT,PE Plan: Plan of Care DC IV Vanc cont Ceftriaxone and micafungin transition to po antibiotics likely tomorrow for dc home f/u cults and labs cont supportive care Optimal glucose control. Wound care management. VONDA OSPINA MD Nov 30, 2018 11:05
[2018-11-30] MEDS: guaiFENesin DM 200MG/20MG 10 ML SYRUP PO SCH ×3 (11:53→21:10)
[2018-11-30] MEDS: HYDROcodone/APAP 5/325MG 1 TAB TABLET PO PRN ×2 (12:06→21:10)
--- NOTE | 2018-11-30 14:24 | NUR ---
SW following for discharge planning. Discussed with RN, pt does not have any PT needs. Pt has a scooter and walker at home. SW will continue to follow.
[2018-11-30 15:00] VITALS: BP 117/71
--- NOTE | 2018-11-30 15:17 | RAD ---
Portable chest, 11/30/2018: HISTORY: Cough Comparison is made to a study from 03/07/2014. A right PICC extends into the superior vena cava. The heart size and pulmonary vascularity are normal. Hazy opacities projected over both lung bases are probably due to overlying soft tissues and prominent epicardial fat pads in this large patient. No definite pulmonary consolidation is seen. There is no evidence of pleural fluid. IMPRESSION: 1. The right PICC is in satisfactory position. 2. No acute cardiopulmonary abnormality is detected. Electronically signed by: Gilmar Barahona MD (11/30/2018 3:14 PM) [facility]
[2018-11-30] MEDS: cefTRIAXone IV Push 2 GM VIAL. IVP SCH (17:35)
[2018-11-30] MEDS: MICAFUNGIN 100 MG in IV DEXTROSE 5% 100ML 100 ML IV SCH (17:58)
[2018-11-30 19:00] VITALS: BP 111/65
[2018-11-30] MEDS: traZODone 100 MG TABLET. PO SCH (21:10)
[2018-11-30] MEDS: PANTOPRAZOLE 40 MG TABLET.DR. PO SCH (21:10)
[2018-11-30] MEDS: ATORVASTATIN CALCIUM 40 MG TABLET. PO SCH (21:10)
[2018-11-30] MEDS: PRAZOSIN 1 MG CAPSULE. PO SCH (21:10)
[2018-11-30] MEDS: INSULIN GLARGINE 300 UNITS/3 ML INSULN.PEN. SQ SCH (21:12)
[2018-11-30 23:00] VITALS: BP 117/58
[2018-12-01 03:00] VITALS: BP 109/53
[2018-12-01] MEDS: LEVOTHYROXINE 100 MCG TABLET PO SCH (05:02)
[2018-12-01] MEDS: HEPARIN for SUB-Q USE 5,000 UNIT/ML VIAL. SQ SCH (05:05)
[2018-12-01 07:00] VITALS: BP 143/62
[2018-12-01] MEDS: INSULIN LISPRO 300 UNITS/3 ML INSULN.PEN. SQ SCH (08:00)
--- NOTE | 2018-12-01 08:19 | PDOC ---
Infectious Disease Note Subjective: Subjective Pt says he is feeling better pain ,swelling of abdo wall is improving no f/c/n/v/d no sob or cough wants to go home today ROS: ROS Negative except for above. Vital Signs: Vital Signs Vital Signs Date Time Temp Pulse Resp B/P (MAP) Pulse Ox O2 Delivery O2 Flow Rate FiO2 12/01/18 03:00 98.5 105 18 109/53 (71) 90 Room Air 98.5 Physical Exam: PHYSICAL EXAM GENERAL: Alert, oriented, obese male lying in bed comfortably, in no acute distress. HEENT: Normocephalic, atraumatic, anicteric. No thrush. LUNGS: Clear anteriorly. HEART: S1, S2 with no gallops or murmurs. ABDOMEN: Soft, morbidly obese, large pannus, erythematous, tender lower aspect, small numerous lipomas present scattered over the anterior abdominal wall , no induration or abscess, scar well healed. No rebound, no guarding. EXTREMITIES: Lower extremity, bilateral edema. Chronic venous stasis, chronic skin excoriation present. No purulence. No evidence of abscess in lower extremity. NEUROLOGIC: Alert and oriented x 3. Grossly nonfocal. PSYCHIATRIC: Cooperative, appropriate mood and affect. Medications: Inpatient Meds: Current Medications Medications (Trade) Dose Ordered Sig/[facility] Start Time Stop Time Status Last Admin Dose Admin Acetaminophen (Tylenol) 500 mg PRN Q6HRS PRN 11/29/18 09:30 Acetaminophen/ Codeine Phosphate (Tylenol #3) 1 tab PRN Q6HRS PRN 11/29/18 09:30 Acetaminophen/ Hydrocodone Bitart (Lortab 5/325) 1 tab PRN Q6HRS PRN 11/28/18 16:15 11/30/18 21:10 1 TAB Atorvastatin Calcium (Lipitor) 40 mg HS 11/28/18 21:00 11/30/18 21:10 40 MG Buspirone HCl (Buspar) 15 mg TID 11/28/18 16:15 11/30/18 21:10 15 MG Ceftriaxone Sodium (Rocephin) 2 gm Q24H 11/28/18 17:30 11/30/18 17:35 2 GM Dextrose (Dextrose 50%-Water Syringe) 12.5 gm PRN Q15MIN PRN 11/29/18 09:30 Famotidine (Pepcid) 20 mg BID 11/28/18 21:00 11/30/18 21:10 20 MG Fenofibrate (Lofibra) 134 mg DAILY 11/29/18 09:00 11/30/18 08:16 134 MG Fish Oil (Fish Oil) 2,000 mg BID 11/28/18 21:00 11/30/18 21:09 2,000 MG Furosemide (Lasix) 60 mg 1X ONCE 11/29/18 19:15 11/29/18 19:20 DC 11/29/18 19:27 60 MG Guaifenesin (Robitussin Dm) 10 ml QID 11/30/18 12:00 11/30/18 21:10 10 ML Heparin Sodium (Porcine) (Heparin Sodium) 5,000 unit Q8HRS 11/28/18 16:15 12/01/18 05:05 5,000 UNIT Insulin Glargine (Lantus) 10 units QHS 11/28/18 21:00 11/30/18 21:12 10 UNITS Insulin Human Lispro (HumaLOG) 0-9 UNITS TIDWMEALS 11/29/18 12:00 11/30/18 12:11 4 UNITS Lactobacillus Rhamnosus (Culturelle) 1 cap BID 11/28/18 21:00 11/30/18 21:10 1 CAP Levothyroxine Sodium (Synthroid) 100 mcg DAILY06 11/29/18 06:00 12/01/18 05:02 100 MCG Lisinopril (Prinivil) 10 mg DAILY 11/29/18 09:00 11/30/18 08:15 10 MG Lurasidone HCl (Latuda) 160 mg DAILYWBKFT 11/29/18 08:00 11/30/18 08:16 160 MG Metformin HCl (Glucophage Xr) 500 mg BID 11/28/18 21:00 11/30/18 21:10 500 MG Metoprolol Succinate (Toprol Xl) 25 mg DAILY 11/29/18 09:00 11/30/18 08:15 25 MG Micafungin Sodium 100 mg/Dextrose 100 ml @ 100 mls/hr Q24H 11/28/18 18:00 11/30/18 17:58 100 MLS/HR Nystatin (Nystop) 1 julius BID 11/29/18 13:00 11/30/18 21:11 1 JULIUS Ondansetron HCl (Zofran Odt) 4 mg PRN Q6HRS PRN 11/29/18 09:30 Ondansetron HCl (Zofran) 4 mg PRN Q6HRS PRN 11/29/18 09:30 Oxcarbazepine (Trileptal) 1,200 mg DAILY 11/29/18 09:00 11/30/18 08:15 1,200 MG Pantoprazole Sodium (Protonix) 40 mg QHS 11/29/18 07:30 11/30/18 21:10 40 MG Potassium Chloride (Klor-Con) 10 meq TIDWMEALS 11/28/18 17:00 11/30/18 17:35 10 MEQ Prazosin HCl (Minipress) 1 mg QHS 11/28/18 21:00 11/30/18 21:10 1 MG Sodium Chloride (Normal Saline Flush) 20 ml QSHIFT PRN 11/29/18 16:45 Trazodone HCl (Desyrel) 100 mg HS 11/28/18 21:00 11/30/18 21:10 100 MG Vancomycin HCl (Vanco Per Pharmacy) 1 each PRN DAILY PRN 11/28/18 16:15 11/30/18 11:49 DC 11/29/18 15:40 1 EACH Vancomycin HCl (Vancomycin Trough Level) 1 each 1X ONCE 11/29/18 11:00 11/29/18 11:01 DC 11/29/18 11:00 1 EACH Vancomycin HCl 1.5 gm/Sodium Chloride 500 ml @ 250 mls/hr Q8H 11/29/18 19:00 11/30/18 11:45 DC 11/30/18 03:44 250 MLS/HR Vancomycin HCl 2 gm/Sodium Chloride 500 ml @ 250 mls/hr 1X ONCE 11/28/18 11:00 11/28/18 12:59 DC 11/28/18 11:22 250 MLS/HR Labs: Lab Laboratory Tests Test 11/30/18 11:43 11/30/18 16:35 11/30/18 19:54 12/01/18 07:56 Glucose (Fingerstick) 186 mg/dL (70-99) 150 mg/dL (70-99) 160 mg/dL (70-99) 152 mg/dL (70-99) Objective: Assessment: 1. Cellulitis of abdominal wall pannus with history of recurrence, last was sometime around July 2018.Pt failed clindamycin as outpatient. The patient has received Keflex off and on through [facility] primary care, but has been unable to f/u with the clinic Improving 2. Diabetes mellitus type 1, poorly controlled. 3. Extreme morbid obesity. 4. Chronic venous stasis. 5. Multiple excoriations over lower extremity. 6. Eschar from driscoll superficial, not infected. 7. Gastroesophageal reflux disease. 8. Hyperlipidemia. 9. Hypertension. 10. History of psychiatric illness. 11. H/O LLE DVT,PE Plan: Plan of Care DC home on keflex for 10 days probiotics cont supportive care Optimal glucose control. D/W OVNDA Sullivan MD Dec 01, 2018 08:19
[2018-12-01] MEDS: LACTOBACILLUS RHAMNOSUS GG 1 CAPSULE. PO SCH (09:33)
[2018-12-01] MEDS: busPIRone 5 MG TABLET. PO SCH (09:33)
[2018-12-01] MEDS: LISINOPRIL 10 MG TABLET PO SCH (09:33)
[2018-12-01] MEDS: LURASIDONE 40 MG TABLET. PO SCH (09:34)
[2018-12-01] MEDS: FENOFIBRATE,MICRONIZED 134 MG CAPSULE PO SCH (09:34)
[2018-12-01] MEDS: OXcarbazepine 300 MG TABLET PO SCH (09:34)
[2018-12-01 09:35] VITALS: BP 143/62
[2018-12-01] MEDS: POTASSIUM CHLORIDE 10 MEQ TABLET.ER. PO SCH (09:35)
[2018-12-01] MEDS: FAMOTIDINE 20 MG TABLET. PO SCH (09:35)
[2018-12-01] MEDS: FUROSEMIDE 80 MG TABLET. PO SCH (09:35)
[2018-12-01] MEDS: METOPROLOL SUCC 24HR ER 25 MG TAB.ER.24H. PO SCH (09:35)
[2018-12-01] MEDS: metFORMIN XR 500 MG TAB.ER.24H PO SCH (09:35)
[2018-12-01] MEDS: OMEGA-3 FATTY ACIDS/FISH OIL 1,000 MG CAPSULE. PO SCH (09:35)
[2018-12-01] MEDS ORDERED: CEPH-264 PO (09:56)
--- NOTE | 2018-12-01 09:59 | PDOC3 ---
Discharge Summary Visit Information Date of Admission: Nov 28, 2018 Date of Discharge: Dec 01, 2018 Admitting Diagnosis Comment: Abdominal wall cellulitis Pannus Candidiasis intertriginous areas Super morbidly obesity, BMI 70 to Diabetes type 2 on OHA at home with hemoglobin A1c 10.9 Final Diagnosis Problems Medical Problems: (1) Cellulitis Status: Acute (2) Morbid obesity Status: Acute Brief Hospital Course Allergies Allergies Coded Allergies Type Severity Reaction Last Updated Verified sulfamethoxazole Allergy Intermediate RASH 06/30/16 Yes trimethoprim Allergy Intermediate RASH 06/30/16 Yes Vital Signs Vital Signs Date Time Temp Pulse Resp B/P (MAP) Pulse Ox O2 Delivery O2 Flow Rate FiO2 12/01/18 09:35 112 143/62 12/01/18 07:00 98.2 17 93 Room Air 98.2 Lab Results Laboratory Tests Test 11/29/18 11:10 11/29/18 11:22 11/29/18 16:04 11/29/18 20:16 Vancomycin Level Trough 12.6 mcg/mL (10.0-20.0) Vancomycin Last Dose Date 11/29/18 Vancomycin Last Dose Time 0330 Glucose (Fingerstick) 190 mg/dL (70-99) 168 mg/dL (70-99) 160 mg/dL (70-99) Test 11/30/18 07:46 11/30/18 11:43 11/30/18 16:35 11/30/18 19:54 Glucose (Fingerstick) 146 mg/dL (70-99) 186 mg/dL (70-99) 150 mg/dL (70-99) 160 mg/dL (70-99) Test 12/01/18 07:56 Glucose (Fingerstick) 152 mg/dL (70-99) Laboratory Tests Test 11/30/18 11:43 11/30/18 16:35 11/30/18 19:54 12/01/18 07:56 Glucose (Fingerstick) 186 mg/dL (70-99) 150 mg/dL (70-99) 160 mg/dL (70-99) 152 mg/dL (70-99) Brief Hospital Course Mr. Ferrell is a 53 old super morbidly obese with a BMI of 72.8 admitted for abdominal wall cellulitis/ pannus and some candidiasis superficial in intertriginous areas. Comanage with ID. No bacteremia. Okay for Keflex to go home with. We have been applying nystatin powder in intertriginous areas have been dry. Extensive education about keeping the skin folds dry, maintaining hygiene. He has poor overall hygiene has a CAT who constantly licks his wounds or scratches his skin. No lesions in the abdominal areas lower extremity is less red. Nontoxic appearing, no fever no white count, hence ready for by mouth antibiotics Discussed with ID Consults performed by ID Procedures performed none Discharge disposition to current home health time 32 m ins > 50% educn and counselling Dw ID Discharge Information Condition at Discharge: Improved, Stable Disposition/Orders: D/C to Home w/ HH Scheduled Atorvastatin Calcium (Atorvastatin Calcium) 40 Mg Tablet, 40 MG PO HS, (Reported ) Entered as Reported by: ROBERTO BECK on 12/07/13 154 Last Action: Continued on 11/28/181601 by JUANJOSE GUERRERO MD Buspirone Hcl (Buspirone Hcl) 15 Mg Tablet, 15 MG PO TID, (Reported) Entered as Reported by: ROBERTO BECK on 12/07/13 1537 Last Action: Converted on 11/28/181601 by JUANJOSE GUERRERO MD Cephalexin (Keflex) 500 Mg Capsule, 500 MG PO QID for pannus for 10 Days, #40 Prescribed by: JAE DELEON on 12/01/18 0956 Clindamycin Hcl (Clindamycin Hcl) 300 Mg Capsule, 1 CAP PO TID, #21 Prescribed by: BENITA ESCOBAR on 06/30/16 1756 Last Action: HELD on 11/28/181601 by JUANJOSE GUERRERO MD Fenofibrate (Fenofibrate) 160 Mg Tablet, 160 MG PO DAILY, (Reported) Entered as Reported by: ROBERTO BECK on 12/07/13 1542 Last Action: Converted on 11/28/181601 by JUANJOSE GUERRERO MD Furosemide (Lasix) 80 Mg Tablet, 80 MG PO DAILY, (Reported) Entered as Reported by: ROBERTO BECK on 12/07/13 1500 Last Action: Continued on 11/28/181601 by JUANJOSE GUERRERO MD Insulin Detemir (Levemir Flexpen) 100 Unit/1 Ml Insuln.pen, 10 UNIT SQ HS, #1 ( Reported) Entered as Reported by: DANIA LOPEZ on 12/13/13 1717 Last Action: Converted on 11/28/181601 by JUANJOSE GUERRERO MD Levothyroxine Sodium (Levothyroxine Sodium) 100 Mcg Tablet, 100 MCG PO DAILY, ( Reported) Entered as Reported by: ROBERTO BECK on 12/07/13 1500 Last Action: Continued on 11/28/181601 by JUANJOSE GUERRERO MD Lisinopril (Lisinopril) 10 Mg Tablet, 10 MG PO DAILY, (Reported) Entered as Reported by: ROBERTO BECK on 12/07/13 1501 Last Action: Continued on 11/28/181601 by JUANJOSE GUERRERO MD Lurasidone Hcl (Latuda) 80 Mg Tablet, 160 MG PO DAILY, #2 (Reported) Entered as Reported by: ROBERTO BECK on 12/07/13 1539 Last Action: Converted on 11/28/181601 by JUANJOSE GUERRERO MD Metformin Hcl (Metformin Hcl Er) 500 Mg Tab.er.24, 500 MG PO BID, (Reported) Entered as Reported by: ROBERTO BECK on 12/07/13 1502 Last Action: Converted on 11/28/181601 by JUANJOSE GUERRERO MD Metoprolol Succinate (Metoprolol Succinate ( Xl )) 25 Mg Tab.er.24h, 25 MG PO DAILY, (Reported) Entered as Reported by: ROBERTO BECK on 12/07/13 1457 Last Action: Continued on 11/28/181601 by JUANJOSE GUERRERO MD [place]-3 Acid Ethyl Esters (Lovaza) 1 Gm Capsule, 2 GM PO BID, #2 (Reported) Entered as Reported by: ROBERTO BECK on 12/07/13 1501 Last Action: Converted on 11/28/181601 by JUANJOSE GUERRERO MD Omeprazole (Omeprazole) 20 Mg Capsule.dr, 20 MG PO HS, (Reported) Entered as Reported by: ROBERTO BECK on 12/07/13 1541 Last Action: Converted on 11/28/181601 by JUANJOSE GUERRERO MD Oxcarbazepine (Oxcarbazepine) 600 Mg Tablet, 1,200 MG PO DAILY, #2 (Reported) Entered as Reported by: ROBERTO BECK on 12/07/13 1539 Last Action: Converted on 11/28/181601 by JUANJOSE GUERRERO MD Potassium Chloride (Potassium Chloride) 10 Meq Capsule.er, 10 MEQ PO TID, ( Reported) Entered as Reported by: ROBERTO BECK on 12/07/13 1536 Last Action: Continued on 11/28/181601 by JUANJOSE GUERRERO MD Prazosin Hcl (Prazosin Hcl) 1 Mg Capsule, 1 MG PO HS, (Reported) Entered as Reported by: ROBERTO BECK on 12/07/13 1541 Last Action: Converted on 11/28/181601 by JUANJOSE GUERRERO MD Ranitidine Hcl (Ranitidine Hcl) 150 Mg Tablet, 150 MG PO BID, (Reported) Entered as Reported by: ROBERTO BECK on 12/07/13 1503 Last Action: Converted on 11/28/181601 by JUANJOSE GUERRERO MD Trazodone Hcl (Trazodone Hcl) 100 Mg Tablet, 100 MG PO HS, (Reported) Entered as Reported by: ROBERTO BECK on 12/07/13 1540 Last Action: Continued on 11/28/181601 by JUANJOSE GUERRERO MD Zolpidem Tartrate (Zolpidem Tartrate) 10 Mg Tablet, 10 MG PO HS, (Reported) Entered as Reported by: ROBERTO BECK on 12/07/13 1540 Last Action: HELD on 11/28/181601 by JUANJOSE GUERRERO MD Scheduled PRN Hydrocodone/Apap 5-325 ([place] 5-325 Tablet) 1 Each Tablet, 1 TAB PO PRN Q6HRS PRN for PAIN, #15 Prescribed by: BENITA ESCOBAR on 06/30/16 1756 Last Action: Continued on 11/28/181601 by MD PANCHO MITCHELL CHERRIE Y MD Dec 01, 2018 09:59
--- NOTE | 2018-12-01 10:00 | DISCH ---
DISCHARGE WITH HOME HEALTH DISCHARGE INFORMATION: Discharge Date: Dec 01, 2018 Final Diagnosis: Problems Medical Problems: (1) Cellulitis Status: Acute (2) Morbid obesity Status: Acute Condition on Discharge: Stable CODE STATUS: Code Status: Full HOME HEALTH: Face to Face: I certify this patient is under my care and that I, or a nurse practitioner or physician's elementary assistant teacher working with me, had a face to face encounter that meets the physician face to face encounter requirements with this patient on []. 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 Pt Meets Homebound Status: Unsteady balance w/ amb, CHECKS AFTER DISCHARGE: Checks after discharge: Check blood press - daily, Check blood sugar, ac/hs TREATMENT/EQUIPMENT ORDERS: Adaptive Equipment Issued: [place] CERTIFICATION STATEMENT: Certification Statement: Certification Statement: Based on the above finding, I certify that this patient is confined to the home and needs intermittent halfway care, physical therapy and/or speech therapy, or continues to need occupational therapy.~ This patient is under my care, and I have initiated the establishment of the plan of care.~ This patient will be followed by myself or a community physician who will periodically review the plan of care. Home Meds Active Scripts Cephalexin (KEFLEX) 500 Mg Capsule, 500 MG PO QID for pannus for 10 Days, #40 CAP Prov:JAE DELEON MD 12/01/18 Clindamycin Hcl (CLINDAMYCIN HCL) 300 Mg Capsule, 1 CAP PO TID, #21 CAP Prov:BENITA ESCOBAR 06/30/16 Hydrocodone/Apap 5-325 ([place] 5-325 TABLET) 1 Each Tablet, 1 TAB PO PRN Q6HRS PRN for PAIN, #15 TAB Prov:BENITA ESCOBAR 06/30/16 Reported Medications Insulin Detemir (LEVEMIR FLEXPEN) 100 Unit/1 Ml Insuln.pen, 10 UNIT SQ HS, #1 12/13/13 Fenofibrate (FENOFIBRATE) 160 Mg Tablet, 160 MG PO DAILY 12/07/13 Atorvastatin Calcium (ATORVASTATIN CALCIUM) 40 Mg Tablet, 40 MG PO HS 12/07/13 Omeprazole (OMEPRAZOLE) 20 Mg Capsule.dr, 20 MG PO HS 12/07/13 Prazosin Hcl (PRAZOSIN HCL) 1 Mg Capsule, 1 MG PO HS 12/07/13 Trazodone Hcl (TRAZODONE HCL) 100 Mg Tablet, 100 MG PO HS 12/07/13 Zolpidem Tartrate (ZOLPIDEM TARTRATE) 10 Mg Tablet, 10 MG PO HS 12/07/13 Oxcarbazepine (OXCARBAZEPINE) 600 Mg Tablet, 1200 MG PO DAILY, #2 12/07/13 Lurasidone Hcl (LATUDA) 80 Mg Tablet, 160 MG PO DAILY, #2 12/07/13 Buspirone Hcl (BUSPIRONE HCL) 15 Mg Tablet, 15 MG PO TID 12/07/13 Potassium Chloride (POTASSIUM CHLORIDE) 10 Meq Capsule.er, 10 MEQ PO TID 12/07/13 Ranitidine Hcl (RANITIDINE HCL) 150 Mg Tablet, 150 MG PO BID 12/07/13 Metformin Hcl (METFORMIN HCL ER) 500 Mg Tab.er.24, 500 MG PO BID 12/07/13 [place]-3 Acid Ethyl Esters (LOVAZA) 1 Gm Capsule, 2 GM PO BID, #2 12/07/13 Lisinopril (LISINOPRIL) 10 Mg Tablet, 10 MG PO DAILY 12/07/13 Levothyroxine Sodium (LEVOTHYROXINE SODIUM) 100 Mcg Tablet, 100 MCG PO DAILY 12/07/13 Furosemide (LASIX) 80 Mg Tablet, 80 MG PO DAILY 12/07/13 Metoprolol Succinate (METOPROLOL SUCCINATE ( XL )) 25 Mg Tab.er.24h, 25 MG PO DAILY 12/07/13 JAE DELEON MD Dec 01, 2018 10:00
--- NOTE | 2018-12-01 10:42 | NUR ---
Discharge Note: [facility] Discharge instructions and discharge home medications reviewed with Patient and a copy given. All questions have been answered and understanding verbalized. The following instructions and handouts were given: follow up and wound care instructions. keflex education. Discontinued lines and drains: TL PICC SHAHEEN discontinued intact. Patient discharged to home with home health via private vehicle. Brother here to sheepskin pickler
--- NOTE | 2018-12-02 11:14 | NUR ---
SW following. Pt advised his RN he had home health services through [facility] (ph:[phone], fax: [phone]). SW contacted [place] to confirm. SW faxed updates and discharge paperwork. Pt discharged home with his brother yesterday morning (12/01/18). No further SW needs.
== END 2018-12-01 10:30 | disposition home health service (06) | DRG 602 ==
LOC: ER 08:34 → ED HOLD 10:34 → 5 SOUTH 13:30
PROVIDERS: ADMIT Family Medicine; ATTEND Family Medicine
PROC: 02HV33Z Insertion of Infusion Device into Superior Vena Cava, Percutaneous Approach (ICD-10-PCS; principal; 2018-11-29)
PROC: B548ZZA Ultrasonography of Superior Vena Cava, Guidance (ICD-10-PCS; 2018-11-29)
DX: L03.311 Cellulitis of abdominal wall (principal); E43 Unspecified severe protein-calorie malnutrition; Z68.45 Body mass index [BMI] 70 or greater, adult; I42.9 Cardiomyopathy, unspecified; B37.2 Candidiasis of skin and nail; E66.01 Morbid (severe) obesity due to excess calories; E10.65 Type 1 diabetes mellitus with hyperglycemia; I10 Essential (primary) hypertension; K21.9 Gastro-esophageal reflux disease without esophagitis; E03.9 Hypothyroidism, unspecified; J44.9 Chronic obstructive pulmonary disease, unspecified; E78.5 Hyperlipidemia, unspecified; I87.8 Other specified disorders of veins; F31.9 Bipolar disorder, unspecified; R32 Unspecified urinary incontinence; E65 Localized adiposity; N20.0 Calculus of kidney; N43.3 Hydrocele, unspecified; Z86.711 Personal history of pulmonary embolism; Z86.718 Personal history of other venous thrombosis and embolism; Z79.899 Other long term (current) drug therapy; Z79.4 Long term (current) use of insulin; Z87.891 Personal history of nicotine dependence; Z88.2 Allergy status to sulfonamides; Z88.8 Allergy status to other drugs, medicaments and biological substances; Z79.890 Hormone replacement therapy; Z82.49 Family history of ischemic heart disease and other diseases of the circulatory system; Z83.3 Family history of diabetes mellitus
CPT/HCPCS: 36415; 36569; 71045; 74176; 80048; 80053; 80202; 81001; 82962; 83036; 85025; 85610; 86140; 87040; 87086; 87641; J0696; J1644; J1815; J1940; J2248; J3370; J7040